=== PATIENT | female | born 1995 | race Caucasian/White ===

== ENCOUNTER → 2018-01-25 13:18 | Outpatient (CLI) | payer BC, SELFPAY ==
[2018-01-25 09:18] VITALS: BMI 19.5
[2018-01-25 14:57] LABS: HIV - WCH Non-Reactive (Nonreactive)
[2018-01-26 08:53] LABS: HEPATITIS B SURFACE AG Negative (Negative)
[2018-01-27 07:03] LABS: Rapid Plasmin Reagin (RPR) NONREACTIVE (NONREACTIVE)
--- OUTSIDE RECORDS SUMMARY | 2018-03-22 22:52 | XMS RPT_ITS ---
:1995 Author Organization OHIP Care Team Providers Name Role Phone Felicia Heath Attending Unavailable Fide Nolasco Attending Unavailable Felicia Heath Attending Unavailable Felicia Heath Attending Unavailable Felicia Heath Referring Unavailable Primay Care Physicia, No Primary Care Unavailable Reji Lorenz Attending Unavailable Reji Lorenz Primary Care Unavailable Reji Lorenz Attending Unavailable Reji Lorenz Primary Care Unavailable Reji Lorenz Admitting Unavailable Reji Lorenz Admitting Unavailable Reji Lorenz Attending Unavailable Reji Lorenz Primary Care Unavailable Reji Lorenz Attending Unavailable Reji Lorenz Primary Care Unavailable Reji Lorenz Admitting Unavailable Reji Lorenz Attending Unavailable No Doctor Assigned, Nodr Primary Care Unavailable Reji Lorenz Attending Unavailable No Doctor Assigned, Nodr Primary Care Unavailable VERNON CAST Attending Unavailable FELICIA HEATH Referring Unavailable NO PRIMARY CAREMD Primary Care Unavailable PROBLEMS PROBLEMS DATE TYPE CONDITION / CODE ATTENDING STATUS SOURCE 01/25/2018 Unknown Z34.02 - Erwin Heath [place] Encounter for Felicia [facility] normal first Repository , second trimester / Z34.02(ICD-10) 01/25/2018 Unknown Z34.00 - Kumar, Active [place] Encounter for [facility] normal first Repository , unspecified trimester / Z34.00(ICD-10) 01/25/2018 Unknown Z3A.19 - 19 weeks Kumar, Active [place] gestation of [facility] Z3A.19(ICD-10) Repository 12/31/2017 Unknown Z3A.15 - 15 weeks Kumar, Active [place] gestation of [facility] Z3A.15(ICD-10) Repository PROCEDURES PROCEDURES No Procedure Records FoundRESULTS RESULTS HIV - [facility] Collected: 01/25/2018 Status: F Source: [place] 1:26 PM [facility] REPOSITORY TYPE CODE TESTS RESULT OUT OF RANGE REFERENCE UNITS LAB L3890.6005 Nonreactive Normal HIV - [facility] Non-Reactive Performed By: #### L3890.6005 #### [facility] [address] [place], [place], [id number] HEPATITIS B SURFACE Collected: 01/25/2018 Status: F Source: WILLIAM AG 1:26 PM [facility] REPOSITORY TYPE CODE TESTS RESULT OUT OF RANGE REFERENCE UNITS LAB L3100.0400 Negative Normal HB Negative SURF AG Result Comment: Performed at: [facility] [address] [id number] Marketing Operations Intern: Yuniel Pierce PhD, Phone: [phone] Performed By: #### L3100.0390 #### [facility] (refer to report for specific site) refer to report for address and phone number RAPID PLASMIN REAGIN Collected: 01/25/2018 Status: F Source: WILLIAM (RPR) 1:26 PM [facility] REPOSITORY TYPE CODE TESTS RESULT OUT OF REFERENCE UNITS RANGE LAB L700.5000 NONREACTIVE NONREACTIVE Normal RPR Performed By: #### L700.5000 #### [facility] [address] [place], [place], [address] CALL OUT CLERK OFFICE VISIT Observed: 01/25/2018 Status: F Source: [place] REPORT 9:42 AM [facility] REPOSITORY [facility] [address] [place] [address] OFFICE VISIT Date of Service: 01/25/18 MR#: [id number] Acct: [id number] Name: DENNISE MCDONALD Rep #: [id number] : 1995 Provider: Felicia Heath MD Age/Sex: 22/F [place] [facility] [place]: Signed Intake Vital Signs01/25/18 Height 5 ft 4 in 01/25/18 Weight: 114 lb 2 oz 01/25/18 Body Mass Index (BMI) 19.5 01/25/18 Blood Pressure 98/56 L Intake Visit Reasons: 19 weeks Chief Complaint: est ob [employer] Administrator Required: No Is patient in pain?: No Allergies No Known Allergies Allergy (Verified 01/25/18 09:19) Medications vitamin#30 30 mg iron-10 mg iron-folic acid 1 mg- omg3 capsule cap PO cap 12/30/17 [History Confirmed 01/25/18] valacyclovir 500 mg tablet 2,000 mg PO Q12H #8 tab 01/04/18 [Rx Confirmed 01/25/18] Last Menstral Period: 09/14/17 Zika: Zika virus screening: Negative : No PFSH PFSH Medical History H/O cold sores (Acute) Raynaud disease (Acute) Social History Smoking Status: Never smoker alcohol intake: never substance use type: does not use caffeine: Yes what type of physical activity do you participate in: walking seatbelt use: always do you feel safe at home: Yes additional social history: Anneleise- Student and works at [employer] Patient works at [employer] [facility] 19 weeks: Details: DENNISE MCDONALD is a 22 year old who presents for routine OB visit. OB Visit YI Calculator Estimated Delivery Date 06/21/18 Based on LMP (certain) 09/14/17 Current WG 19w 0d Number 1 Expected Delivery Route/Plan Initial Weight: 109 lb Date Weight BP Urine PrFHR FuHt Pres MoCTX DilationFetal StVisit NoProviderComments E ot v te GA G Effac lucose ed Visit Notes Visit Date: 01/25/18 no vb lof cramping. need to obtain records from dr lorenz's office Felicia Heath MD on 01/25/18 Visit Date: 12/30/17 no vb cramping RHETT Dr Danii Heath MD on 12/30/17 Diagnostics Diagnostics Details: HIV: Urine Culture: Sequential Screen: NIPT Screen: Results BMSUA2 Office Urine Glucose Negative Last Edit by Carina Burciaga on 01/25/18 09:28 Assessment AND Plan Problems 1. Encounter for supervision of normal first in second trimester Z34.02 YI 06/21/18 Anneliese 2. 19 weeks gestation of Z3A.19 genetic, ntd, and carrier screening declined. anatomy scan ordered. Plan ACOG trimester education reviewed and updated. see problem list details for updated plan management information and see below for orders placed at this visit. GA appropriate handout given. Orders Orders: Coding Level of Care Code OB Routine Diagnoses Encounter for supervision of normal first in second trimester Z34.02 Trimester: second trimester 19 weeks gestation of Z3A.19 Weeks of gestation: 19 weeks 01/25/18 0942 <Electronically signed by Felicia Heath MD> Date [facility] Signature: Date (if applicable) CC: CALL OUT CLERK OFFICE VISIT Observed: 12/30/2017 Status: F Source: WILLIAM REPORT 5:11 PM [facility] REPOSITORY [facility] [address] [place] [address]. [address] [place] [address] OFFICE VISIT Date of Service: 12/30/17 MR#: [id number] Acct: [id number] Name: HARRYDENNISE Geo Rep #: [id number] : 1995 Provider: Felicia Heath MD Age/Sex: 22/F [place] [facility] [place] Status: Signed Intake Vital Signs12/30/17 Height 5 ft 4 in 12/30/17 Weight: 109 lb 2 oz 12/30/17 Body Mass Index (BMI) 18.7 12/30/17 Blood Pressure 110/68 Intake Visit Reasons: [address] LORENZ Chief Complaint: routine ob, transfer from Dr. Lorenz (Has Records) [employer] Administrator Required: No Is patient in pain?: No Allergies No Known Allergies Allergy (Unverified 12/30/17 16:46) Medications vitamin#30 30 mg iron-10 mg iron-folic acid 1 mg- omg3 capsule cap PO cap 12/30/17 [History Confirmed 12/30/17] Last Menstral Period: 09/14/17 Zika: Zika virus screening: Negative : No PFSH PFSH Medical History H/O cold sores (Acute) Raynaud disease (Acute) Social History Smoking Status: Never smoker alcohol intake: never substance use type: does not use caffeine: Yes what type of physical activity do you participate in: walking seatbelt use: always do you feel safe at home: Yes additional social history: Anneliese- Student and works at [employer] Patient works at [employer] [facility] [address] LORENZ: Details: DENNISE MCDONALD is a 22 year old who presents for routine OB visit. OB Visit YI Calculator Estimated Delivery Date 06/21/18 Based on LMP (certain) 09/14/17 Current WG 15w 2d Number 1 Expected Delivery Route/Plan Initial Weight: 109 lb Date Weight BP Urine PrFHR FuHt Pres MoCTX DilationFetal StVisit NoProviderComments E ot v te GA G Effac lucose ed Visit Notes Visit Date: 12/30/17 no vb cramping RHETT Dr Danii Heath MD on 12/30/17 Diagnostics Diagnostics Details: HIV: Urine Culture: Sequential Screen: NIPT Screen: Assessment AND Plan Problems 1. 15 weeks gestation of Z3A.15 genetic, ntd, and carrier screening declined. anatomy scan ordered. 2. Encounter for supervision of normal first in second trimester Z34.02 YI 06/21/18 Anneliese Fleming ACOG trimester education reviewed and updated. see problem list details for updated plan management information and see below for orders placed at this visit. GA appropriate handout given. Coding Level of Care Code OB Routine Diagnoses 15 weeks gestation of Z3A.15 Weeks of gestation: 15 weeks Encounter for supervision of normal first in second trimester Z34.02 Trimester: second trimester 12/30/17 1711 <Electronically signed by Felicia Heath MD> Date Felicia Heath MD Cosigner Signature: Date (if applicable) CC: CHLAMYDIA GC BY PCR Collected: 11/09/2017 Status: F Source: [facility] 11:45 AM [facility] REPOSITORY TYPE CODE TESTS RESULT OUT OF RANGE REFERENCE UNITS LAB 618444505( Not Detected LOINC) Normal Chlamydia by Not Detected PCR. Result Comment: Xpert CT/NG Assay performance has not been evaluated in patients less than 14 years of age. LAB 404179343(LOINC) Not Detected Normal Gonorrhoeae by Not Detected PCR Result Comment: Xpert CT/NG Assay performance has not been evaluated in patients less than 14 years of age. Performed By: #### [id number] #### [facility] SubSection , Observed: 11/09/2017 Status: F Source: [facility] URINE 11:45 AM [facility] REPOSITORY Final Report: Rare Normal skin lucio isolated Performed By: #### [id number] #### A[facility]LDO Microbiology Subsection [address] [place] [address] CBC W/ AUTO DIFF Collected: 11/09/2017 Status: F Source: [facility] 11:42 AM [facility] REPOSITORY TYPE CODE TESTS RESULT OUT OF RANGE REFERENCE UNITS LAB 40303922(L 3.6-11.0 E3/mcL OINC) Normal WBC 3.7 LAB 06152625(L 3.90-5.40 E6/mcL OINC) Normal RBC 4.20 LAB 00248330(L 12.0-16.0 G/DL OINC) Normal Hgb 13.8 LAB 67577952(L 36.0-48.0 % OINC) Normal Hct 40.4 LAB 17005341(L 11.5-14.5 % OINC) Normal RDW 12.3 LAB 42368091(L 27.0-31.0 pg OINC) High MCH 33.0 LAB 03581250(L 33.0-37.0 G/DL OINC) Normal MCHC 34.3 LAB 52282710(L 78.0-100.0 fL OINC) Normal MCV 96.2 LAB 15356470(L 7.4-11.0 fL OINC) Normal MPV 8.6 LAB 86810102(L 130-400 E3/mcL OINC) Normal Platelet 245 Performed By: #### [id number] #### ARNALDO [employer] [address] [place] [address] HIV-1/2 AG/AB Collected: 11/09/2017 Status: F Source: [place] 11:42 AM [facility] REPOSITORY TYPE CODE TESTS RESULT OUT OF REFERENCE UNITS RANGE LAB CD:5777687 Non-Reactive 575(LOINC) HIV-1 & Normal HIV-2 Antibodies Non-Reactive LAB CD:3665845 Non-Reactive 581(LOINC) HIV-1 Normal p-24 Antigen Non-Reactive LAB CD:6625313 Reactive 569(LOINC) HIV Normal Combo Internal Reactive Control Line LAB CD:9281223 Negative 967(LOINC) HIV-1/2 Normal Ag/Ab Interp Negative Performed By: #### [id number] #### ARNALDO Chemistry Manual Subsection [address] [place] [address] RUBELLA IGG LVL Collected: 11/09/2017 Status: F Source: [place] 11:42 AM [facility] REPOSITORY TYPE CODE TESTS RESULT OUT OF RANGE REFERENCE UNITS LAB 70850822(LO Internation INC) al_Unit/mL Normal Rubella IgG 19.2 Lvl (POS) Result Comment: <10IU/ml NON REACTIVE: NOT IMMUNE 10-15 IU/ml RUBELLA SPECIFIC AB PRESENT, EVALUATE FURTHER TO DETERMINE IMMUNE STATUS >15 IU/ml REACTIVE, IMMUNE Performed By: #### [id number] #### ARNALDO [employer] [address] [place] [address] ANTIBODY SCREEN Collected: 11/09/2017 Status: F Source: [place] CAP... 11:42 AM [facility] REPOSITORY TYPE CODE TESTS RESULT OUT OF RANGE REFERENCE UNITS LAB 84605519(L OINC) Normal Screen Negative Interp... Performed By: #### [id number] #### [facility]LDO Blood Bank Subsection [address] [place] [address] ABO/RH ECHO Collected: 11/09/2017 Status: F Source: [facility] 11:42 AM [facility] REPOSITORY TYPE CODE TESTS RESULT OUT OF RANGE REFERENCE UNITS LAB 50328715(LO INC) ABO/Rh E A POS Interp... Performed By: #### [id number] #### [facility] Blood Bank Subsection [address] [place] [address] HEP BS AG Collected: 11/09/2017 Status: F Source: [facility] 11:42 AM [facility] REPOSITORY TYPE CODE TESTS RESULT OUT OF RANGE REFERENCE UNITS LAB 54159910(LO Negative INC) Normal Hep Negative Bs Ag Result Comment: Performed At: [facility] [address] [id number] Kari Brice PhD Ph:[phone] Performed By: #### [id number] #### ARNALDO Send Outs Subsection [address] [place] [address] RPR Collected: 11/09/2017 Status: F Source: [facility] 11:42 AM [facility] REPOSITORY TYPE CODE TESTS RESULT OUT OF RANGE REFERENCE UNITS LAB 70547164(LO Non-Reactive INC) Normal RPR Ql Non-Reactive Performed By: #### [id number] #### ARNALDO Chemistry Manual Subsection [address] [place] [address] IGP W/HPV RFX Collected: 09/06/2017 Status: F Source: [place] [id number] 1:37 PM [facility] REPOSITORY Order Comment: Thin Prep. LMP 08-15-2017 TYPE CODE TESTS RESULT OUT OF RANGE REFERENCE UNITS LAB 57542382(LO INC) Normal See Ref Lab Diagnosis: Report Performed By: #### [id number] #### ARNALDO Send Outs Subsection [address] [place] [address] PATHOLOGY ([facility]) Observed: 09/06/2017 Status: F Source: [facility] 12:00 AM REPOSITORY FINAL GYNECOLOGIC CYTOLOGY REPORT [id number] SPECIMEN ADEQUACY Satisfactory for Evaluation. Endocervical cells/transformation zone component present. GENERAL CATEGORIZATION Negative for Intraepithelial Lesion or Malignancy CLINICAL HISTORY LMP: 08/15/2017 SPECIMEN (A) SCREENING CERVICAL/ENDOCERVICAL THIN PREP VIAL Performed at [facility], [address] [place] [address] Screened by: Signed Out by: RENNY BEAN Food And Drug Research Scientist Reported: 09/19/2017 Performed By: #### APPLICATIONS SUPPORT LEAD #### [facility] [address] [place] [address] ALLERGIES ALLERGIES DATE TYPE / CODE NAME / CODE REACTION SEVERITY SOURCE 01/25/2018 Drug No Known Unknown [facility] Allergy/4160 Allergies/F001 Hospital 98091(SNOMED 742326(RXNORM) Repository CT) Food/5326182 Pickle juice Severe Gnosticist 00([facility]) System Repository ENCOUNTERS ENCOUNTERS ADMIT/DISCHARGE ACCOUNT NUMBER ADMITTING ENCOUNTER LOCATION SOURCE CLASS 01/30/2018 [id number] Ambulatory Building:[facility] Repository 01/25/2018 [id number] Ambulatory [facility] ding:PAVLAB Repository 01/25/2018/01/26/20 [id number] Ambulatory BMSBuilding: [place] 18 BMS.[facility] Repository 12/30/2017/12/31/19 [id number] Ambulatory BMSBuilding: [place] 18 BMS.[facility] Repository 12/05/2017/12/06/[id number] System :[facility] Repository om: Room 6 11/09/2017 [id number] Ambulatory BMSBuilding: [place] BMS.[facility] Repository 11/09/2017/11/10/[id number] ding:SH.[facility] Repository 11/09/2017 [id number] Ambulatory [address] [place] [address] Repository 11/08/2017/11/09/[id number] System :[facility] Repository om: Procedure 09/06/2017/09/07/[id number] ding:SH.[facility] Repository 09/06/2017/09/07/19 [id number] Danii, Ambulatory [address] System :[facility] Repository om: Room 5 09/06/2017 [id number] Ambulatory [address] [place] [address] Repository 08/16/2017/08/17/[id number] System :[facility] PAYERS PAYERS ENCOUNTER GUARANTOR PAYER SUBSCRIBER SOURCE 01/30/2018 INDERJITNE L Primary INDERJITNE L [facility] HERRERADOB: Insurance:ANTHEMPolic HERRERADOB: [facility] y Number: [id number] Repository [address] [id number] [address] [place], [place] Date: [place], [place] [address]Nnb: [phone] () 01/25/2018 INDERJITNE L Primary SHAIANNE L [place] [id number] 1/2 E Insurance:ANTHEMPolic HERRERADOB: [address] y Number: [id number] [id number] Repository [address]Lcm: ([phone]) Date:7548-38-18GW [phone] () [id number], [place] [address]SX: 01/25/2018 Secondary NOT GIVENUNK [place] Insurance:SELF PAY [place] Number: Effective Repository Date:2018-01-25 01/25/2018 SHAIANNE L Primary SHAIANNE L [place] [id number] 1/2 E Insurance:ANTHEMPolic HERRERADOB: Community [address] y Number: [id number] [id number] Repository [address]Hoq: ([phone]) Date:7222-03-79BM [phone] () [id number], [place] [address]MF: 01/25/2018 Secondary NOT GIVENUNK [place] Insurance:SELF PAY [facility] Number: Effective Repository Date:2018-01-25 12/30/2017 SHAIANNE L Primary SHACOLTENNE L [place] [id number] 1/2 E Insurance:ANTHEMPolic HERRERADOB: [address] y Number: [id number] [place], [place] [id number] Repository [address]Fiy: ([phone]) Date:8822-12-18YT [phone] () [id number] [place] [address]OY: 12/30/2017 Secondary NOT GIVENUNK [place] Insurance:SELF PAY [facility]: Effective Repository Date:2017-12-30 11/09/2017 Primary SHAIANNE L [place] Insurance:ANTHEMPolic HERRERADOB: Community y Number: [id number] [id number] Repository Date:6999-55-35YL [address]AFSCWWN, [place] [address]GO: 11/09/2017 Secondary NOT GIVENUNK [place] Insurance:SELF PAY [facility] Number: Effective Repository Date:2017-11-09 11/09/2017 [facility]AnthemPolic HERRERADOB: [facility] y Number: [id number] Repository /[address] [id number] [address] [place], [place] Date:Plan Name:[place], [place] [id number]: [id number]: () () 09/06/2017 [facility]: [facility]:1500 HERRERADOB: [facility] E MEDICAID [id number] System [facility] Number: [address] Repository [place], [place] [address]Pps: Date:2017-08-16 [phone]: [id number] () Name:CD:[id number] O (HP)Tel: (454) LXL [address], [place] [phone] (WP) [address]OP: 09/06/2017 [facility]: [facility] y Number: [id number] Repository [address] [id number] [address] [place], [place] Date:Plan Name:[place], [place] [id number]: [id number]: (HP) (HP) 08/16/2017 [facility] [place], [place] [address]OB: [facility] E MEDICAID [id number] System [facility] Number: [place] [place] [address]Rrd: Date:2017-07-05 [id number]: [id number] (HP) Name:CD:[id number] O (HP)Tel: (673) [address], [place] [phone] (WP) [phone]:
== END ==
PROVIDERS: Referring Provider Obstetrics & Gynecology; Visit Provider Obstetrics & Gynecology
DX: Z34.00 Encounter for supervision of normal first pregnancy, unspecified trimester (principal)
CPT/HCPCS: 36415; 86592; 86703; 87340

== ENCOUNTER → 2018-03-27 14:20 | Outpatient (CLI) | payer BC, SELFPAY ==
[2018-02-24 11:57] VITALS: BMI 19.5
[2018-03-27 15:50] LABS: Absolute Lymphocyte Count 1.01 X10^3/ul (0.83-4.51); Basophil# 0.01 X10^3/uL; Basophil% 0.2 % (0-1); Eosinophil# 0.01 X10^3/uL; Eosinophils% 0.2 % (0-5); Hematocrit 37.7 % (37-47); Hemoglobin 13.2 g/dl (12.0-15.0); Lymphocyte # 1.01 X10^3/ul (4.0); Lymphocyte % 19.1 % (19-41); Mean Corpuscular Hgb 33.2 pg (27.0-32.0); Mean Corpuscular Volume 94.7 fL (81-99); Mean Platelet Vol. 9.8 fl (6.2-12.0); Monocyte# 0.21 X10^3/uL; Neutrophil # 4.03 X10^3/uL (2.7-7.7); Neutrophil % 76.3 % (47-70); Platelet Count 245 K/mm3 (150-450); RBC Distribution Width CV 12.2 % (11.6-14.6); RBC Distribution Width SD 41.2 fl (35.1-43.9); Red Blood Count 3.98 M/mm3 (4.2-5.4); White Blood Count 5.3 K/mm3 (4.4-11.0)
[2018-03-27 15:58] LABS: Glucose Challenge Gest 1H 50g 159 mg/dL (70-140)
[2018-03-27 16:12] LABS: POSITIVE COUNT NO; POSITIVE DIFFERENTIAL NO; POSITIVE MORPHOLOGY NO
== END ==
PROVIDERS: Visit Provider Obstetrics & Gynecology
DX: Z34.00 Encounter for supervision of normal first pregnancy, unspecified trimester (principal)
CPT/HCPCS: 36415; 82950; 85025

== ENCOUNTER → 2018-04-04 10:04 | Outpatient (CLI) | payer SELFPAY ==
[2018-02-24 11:57] VITALS: BMI 19.5
[2018-03-30 14:30] VITALS: BMI 19.5
[2018-04-04 10:54] LABS: Glucose GTT-Gestation. Fasting 74 mg/dL (<105)
[2018-04-04 11:53] LABS: Glucose GTT-Gestational 1 Hr 175 mg/dL (<190)
[2018-04-04 12:50] LABS: Glucose GTT-Gestational 2 Hr 142 mg/dL (<165)
[2018-04-04 13:45] LABS: Glucose GTT-Gestational 3 Hr 106 L (<145)
== END ==
PROVIDERS: Referring Provider Obstetrics & Gynecology; Visit Provider Obstetrics & Gynecology
DX: O99.810 Abnormal glucose complicating pregnancy (principal)
CPT/HCPCS: 36415; 82951; 82952

== ENCOUNTER → 2018-04-14 13:24 | Outpatient (CLI) | payer SELFPAY ==
[2018-04-14 09:20] VITALS: BMI 19.5
== END ==
PROVIDERS: Referring Provider Obstetrics & Gynecology; Visit Provider Obstetrics & Gynecology
DX: Z34.00 Encounter for supervision of normal first pregnancy, unspecified trimester (principal)
CPT/HCPCS: 87086

== ENCOUNTER → 2018-05-10 10:31 | Outpatient (CLI) | payer MEDICAID, SELFPAY ==
[2018-05-10 10:08] VITALS: BMI 19.5
[2018-05-10 11:16] LABS: Absolute Lymphocyte Count 1.04 X10^3/ul (0.83-4.51); Eosinophil# 0.01 X10^3/uL; Eosinophils% 0.2 % (0-5); Hematocrit 40.8 % (37-47); Hemoglobin 13.6 g/dl (12.0-15.0); Lymphocyte # 1.04 X10^3/ul (4.0); Lymphocyte % 23.8 % (19-41); Mean Corp Hgb Conc 33.3 g/gl (32-36); Mean Corpuscular Hgb 31.4 pg (27.0-32.0); Mean Corpuscular Volume 94.2 fL (81-99); Monocyte# 0.29 X10^3/uL; Monocyte% 6.6 % (0-10); Neutrophil # 3.01 X10^3/uL (2.7-7.7); Neutrophil % 68.9 % (47-70); Platelet Count 225 K/mm3 (150-450); RBC Distribution Width CV 12.2 % (11.6-14.6); RBC Distribution Width SD 41.5 fl (35.1-43.9); Red Blood Count 4.33 M/mm3 (4.2-5.4); White Blood Count 4.4 K/mm3 (4.4-11.0)
[2018-05-10 11:17] LABS: POSITIVE COUNT NO; POSITIVE DIFFERENTIAL NO; POSITIVE MORPHOLOGY NO
[2018-05-10 11:28] LABS: ALB/GLOB Ratio 0.7 RATIO (0.9-2.4); AST(SGOT) 46 U/L (15-37); Alanine Aminotransfer ALT/SGPT 63 U/L (13-56); Alkaline Phosphatase 221 U/L (45-117); Anion Gap 8 (5-15); BUN 8 mg/dL (7-18); BUN/Creat Ratio 13.7 RATIO (10-20); Chloride 104 mmol/L (98-107); Creatinine, Serum 0.59 mg/dL (0.55-1.02); EST Glomerular Filtration Rate 136 mL/min (>60); Est Glom Filt Rate - Afr Amer 164 mL/min (>60); Globulin 4.3 g/dL (2.2-4.2); Glucose 71 mg/dL (74-106); Potassium 3.9 mmol/L (3.5-5.1); Protein, Total 7.3 g/dL (6.4-8.2); Sodium Level 135 mmol/L (136-145)
== END ==
PROVIDERS: Referring Provider Obstetrics & Gynecology; Visit Provider Obstetrics & Gynecology
DX: Z87.2 Personal history of diseases of the skin and subcutaneous tissue (principal)
CPT/HCPCS: 36415; 80053; 85025

== ENCOUNTER → 2018-05-16 14:19 | Outpatient (CLI) | payer MEDICAID, SELFPAY ==
[2018-05-16 14:12] VITALS: BMI 19.5
== END ==
PROVIDERS: Visit Provider Obstetrics & Gynecology
DX: Z87.2 Personal history of diseases of the skin and subcutaneous tissue (principal)
CPT/HCPCS: 36415

== ENCOUNTER → 2018-05-22 11:43 | Outpatient (CLI) | payer MEDICAID, SELFPAY ==
[2018-05-16 14:12] VITALS: BMI 19.5
[2018-05-22 12:32] LABS: Absolute Lymphocyte Count 0.86 X10^3/ul (0.83-4.51); Absolute Neutrophil Count 3.4 X10^3/uL (2.0-7.7); Basophil# 0.01 X10^3/uL; Basophil% 0.2 % (0-1); Eosinophil# 0.01 X10^3/uL; Eosinophils% 0.2 % (0-5); Hematocrit 42.4 % (37-47); Hemoglobin 14.3 g/dl (12.0-15.0); Lymphocyte # 0.86 X10^3/ul (4.0); Lymphocyte % 18.5 % (19-41); Mean Corp Hgb Conc 33.7 g/gl (32-36); Mean Corpuscular Hgb 31.6 pg (27.0-32.0); Mean Corpuscular Volume 93.8 fL (81-99); Mean Platelet Vol. 9.9 fl (6.2-12.0); Monocyte% 6.5 % (0-10); Neutrophil # 3.44 X10^3/uL (2.7-7.7); Neutrophil % 74.2 % (47-70); Platelet Count 250 K/mm3 (150-450); RBC Distribution Width CV 12.3 % (11.6-14.6); RBC Distribution Width SD 41.3 fl (35.1-43.9); Red Blood Count 4.52 M/mm3 (4.2-5.4); White Blood Count 4.6 K/mm3 (4.4-11.0)
[2018-05-22 12:37] LABS: POSITIVE COUNT NO; POSITIVE DIFFERENTIAL NO; POSITIVE MORPHOLOGY NO
[2018-05-22 12:55] LABS: ALB/GLOB Ratio 0.6 RATIO (0.9-2.4); AST(SGOT) 74 U/L (15-37); Alanine Aminotransfer ALT/SGPT 82 U/L (13-56); Albumin, Serum 3.1 g/dL (3.2-5.0); Alkaline Phosphatase 270 U/L (45-117); Anion Gap 8 (5-15); BUN 7 mg/dL (7-18); BUN/Creat Ratio 11.3 RATIO (10-20); Chloride 106 mmol/L (98-107); Creatinine, Serum 0.62 mg/dL (0.55-1.02); EST Glomerular Filtration Rate 127 mL/min (>60); Est Glom Filt Rate - Afr Amer 154 mL/min (>60); Globulin 4.8 g/dL (2.2-4.2); Glucose 66 mg/dL (74-106); Potassium 3.8 mmol/L (3.5-5.1); Protein, Total 7.9 g/dL (6.4-8.2); Sodium Level 138 mmol/L (136-145)
[2018-05-23 05:06] LABS: HEPATITIS B SURFACE AG Negative (Negative); Hepatitis A IgM Antibody Negative (Negative); Hepatitis B Core AB IgM Negative (Negative)
[2018-05-23 13:44] LABS: Hep C Antibodies <0.1 s/co ratio (0.0-0.9)
== END ==
PROVIDERS: Referring Provider Obstetrics & Gynecology; Visit Provider Obstetrics & Gynecology
DX: R94.5 Abnormal results of liver function studies (principal)
CPT/HCPCS: 36415; 80053; 80074; 85025

== ENCOUNTER → 2018-05-26 13:58 | Outpatient (CLI) | payer MEDICAID, SELFPAY ==
[2018-05-26 11:01] VITALS: BMI 19.5
== END ==
PROVIDERS: Referring Provider Obstetrics & Gynecology; Visit Provider Obstetrics & Gynecology
DX: Z34.00 Encounter for supervision of normal first pregnancy, unspecified trimester (principal)
CPT/HCPCS: 87081

== ENCOUNTER 2018-05-29 12:35 | Outpatient (CLI) | payer MEDICAID, SELFPAY ==
[2018-05-26 11:01] VITALS: BMI 19.5
[2018-05-29 12:45] VITALS: BMI 21.1
[2018-05-29] MEDS: Betamethasone/Betamethasone 30 MG/5 ML Vial 12 MG IM (13:24)
--- NOTE | 2018-05-31 07:01 | OB.TRI.PN ---
Progress Notes Date of Service: 05/29/18 Progress Note: cholestasis of - celestone injection only
== END 2018-05-29 13:25 | disposition home or self-care (01) ==
LOC: WPOUT 12:43 → WP 12:44
PROVIDERS: Referring Provider Obstetrics & Gynecology; Visit Provider Obstetrics & Gynecology
DX: O26.619 Liver and biliary tract disorders in pregnancy, unspecified trimester (principal); K83.1 Obstruction of bile duct; Z3A.00 Weeks of gestation of pregnancy not specified
CPT/HCPCS: 96372; 99218; G0378; J0702

== ENCOUNTER 2018-05-30 13:05 | Outpatient (CLI) | payer MEDICAID, SELFPAY ==
[2018-05-29 12:45] VITALS: BMI 21.1
[2018-05-30 13:21] VITALS: BMI 21.1
[2018-05-30] MEDS: Betamethasone/Betamethasone 30 MG/5 ML Vial 12 MG IM (14:02)
--- NOTE | 2018-05-31 07:02 | OB.TRI.PN ---
Progress Notes Date of Service: 05/30/18 Progress Note: cholestasis of - celestone injection only
== END 2018-05-30 14:00 | disposition home or self-care (01) ==
LOC: WPOUT 13:16 → WP 13:17
PROVIDERS: Referring Provider Obstetrics & Gynecology; Visit Provider Obstetrics & Gynecology
DX: O26.619 Liver and biliary tract disorders in pregnancy, unspecified trimester (principal); K83.1 Obstruction of bile duct; Z3A.00 Weeks of gestation of pregnancy not specified
CPT/HCPCS: 96372; 99218; G0378; J0702

== ENCOUNTER 2018-05-31 07:30 | Inpatient (IN) | payer MEDICAID, SELFPAY ==
[2018-05-16 14:12] VITALS: BMI 19.5
[2018-05-30 13:21] VITALS: BMI 21.1
[2018-05-31 07:52] VITALS: BMI 21.2
[2018-05-31] MEDS: Lactated Ringers 1,000 ML 50 ML IV (08:15)
[2018-05-31] MEDS: Oxytocin 30 units/NS 500 ml 30 UNITS/500 ML IV.SOLN IV (08:40)
[2018-05-31 09:00] LABS: Absolute Lymphocyte Count 1.15 X10^3/ul (0.83-4.51); Absolute Neutrophil Count 4.9 X10^3/uL (2.0-7.7); Hematocrit 35.5 % (37-47); Hemoglobin 12.1 g/dl (12.0-15.0); Lymphocyte # 1.15 X10^3/ul (4.0); Lymphocyte % 18.1 % (19-41); Mean Corp Hgb Conc 34.1 g/gl (32-36); Mean Corpuscular Hgb 31.3 pg (27.0-32.0); Mean Corpuscular Volume 91.7 fL (81-99); Mean Platelet Vol. 9.8 fl (6.2-12.0); Monocyte# 0.33 X10^3/uL; Monocyte% 5.2 % (0-10); Neutrophil # 4.87 X10^3/uL (2.7-7.7); Neutrophil % 76.5 % (47-70); POSITIVE COUNT NO; POSITIVE DIFFERENTIAL NO; POSITIVE MORPHOLOGY NO; Platelet Count 250 K/mm3 (150-450); RBC Distribution Width CV 12.3 % (11.6-14.6); Red Blood Count 3.87 M/mm3 (4.2-5.4); White Blood Count 6.4 K/mm3 (4.4-11.0)
[2018-05-31] MEDS: 0.9% Normal Saline 100 ML IV.SOLN. INTRA-UTER (09:07)
[2018-05-31 09:16] LABS: ALB/GLOB Ratio 0.7 RATIO (0.9-2.4); AST(SGOT) 99 U/L (15-37); Alanine Aminotransfer ALT/SGPT 105 U/L (13-56); Albumin, Serum 2.9 g/dL (3.2-5.0); Alkaline Phosphatase 227 U/L (45-117); Anion Gap 9 (5-15); BUN 6 mg/dL (7-18); BUN/Creat Ratio 9.1 RATIO (10-20); Calcium,Total 8.7 mg/dL (8.5-10.1); Chloride 106 mmol/L (98-107); Creatinine, Serum 0.66 mg/dL (0.55-1.02); EST Glomerular Filtration Rate 118 mL/min (>60); Est Glom Filt Rate - Afr Amer 143 mL/min (>60); Estimated Creatinine Clearance 115.45 ml/min; Glucose 117 mg/dL (74-106); Potassium 3.1 mmol/L (3.5-5.1); Protein, Total 6.9 g/dL (6.4-8.2); Sodium Level 137 mmol/L (136-145)
--- NOTE | 2018-05-31 10:34 | HP.PCM_ITS ---
- Problem List (1) Supervision of high risk in third trimester Status: Acute (2) Cholestasis Status: Acute Comment: twice weekly BPP, deliver at 37 weeks (3) Placental abnormality in third trimester Status: Acute Comment: placental lakes/cystic structure at cord, check growth scan q 4 weeks BPP twice weekly, nst weekly. deliver at 37 weeks (4) Abnormal glucose affecting Status: Acute Comment: 1 hour elevated- normal 3GTT (5) Supervision of normal first Status: Acute Qualifiers: Comment: YI 06/21/18 boy Farooq Ysoi (in alf) (6) Status: Acute Qualifiers: Comment: genetic, ntd, and carrier screening declined. MFM Anatomy US normal- showed cystic structure near placental cord insertion- US 03/30: anterior placenta, grade 1 multiple venous lakes, largest near placental cord insertion 2.3x1.4x1.1 FU US in 4 weeks- adequate growth repeat in 4 weeks. Deliver at 37 weeks. History Date of Admission: 05/31/18 Final YI: 06/21/18 Gestational age: 37 Weeks and 0 Days History of this : This is a 22 year-old, at 37 weeks gestational age present sfor IOL cholestasis. she hsa had elevate dlive renzymes but resasuring feta ltesting. she received steroids 2 days prior to delivery. she dneie sany vb lof admits good fm dneies any ctx. Medical History: Medical History (Last Reviewed 05/26/18 @ 11:01 by Carina Burciaga) H/O cold sores Z86.19 Raynaud disease I73.00 Allergies No Known Allergies Allergy (Verified 05/31/18 07:44) Home Medications: Home Medications vitamin#30 30 mg iron-10 mg iron-folic acid 1 mg-omg3 capsule 1 cap PO cap 12/30/17 Ursodiol 300 mg PO TID 05/29/18 Valacyclovir HCl [Valacyclovir] 2,000 mg PO Q12H PRN 05/30/18 Smoking Status: Never smoker Alcohol: None Number of Fetus(es): 1 Heart Tracin moderate variability reactive no decelerations category I tracing [place]: no regular History Past Pregnancies: Past Pregnancies Delivery Date Name GA/Weeks Outcome Route Weight Infant Gender Labor Length Anesthesia Delivery Location Provider FOB Labs: Mom's Labs & Results 05/31/18 05/31/18 05/31/18 08:28 08:28 08:28 WBC 6.4 RBC 3.87 L Hgb 12.1 Hct 35.5 L MCV 91.7 MCH 31.3 MCHC 34.1 RDW 12.3 RDW Differential 41.0 Plt Count 250 MPV 9.8 Immature Gran % (Auto) 0.200 Neut % (Auto) 76.5 H Lymph % (Auto) 18.1 L [place] % (Auto) 5.2 Eos % (Auto) 0.0 Baso % (Auto) 0.0 Absolute Neuts (auto) 4.9 Absolute Lymphs (auto) 1.15 Total Counted Not Reportable Sodium 137 Potassium 3.1 L Chloride 106 Carbon Dioxide 22.0 Anion Gap 9 BUN 6 L Creatinine 0.66 Estim Creat Clear Calc 115.45 Est GFR (MDRD) Af Amer 143 Est GFR (MDRD) Non-Af 118 BUN/Creatinine Ratio 9.1 L Glucose 117 H Calcium 8.7 Total Bilirubin 0.40 AST 99 H ALT 105 H Alkaline Phosphatase 227 H Total Protein 6.9 Albumin 2.9 L Globulin 4.0 Albumin/Globulin Ratio 0.7 L Blood Type A POSITIVE Antibody Screen NEGATIVE Course Did the patient receive Yes care? Labs Blood Type: A RH: POSITIVE RPR/VDRL/Syphilis Nonreactive Rubella status Immune HbSAg Negative Date Done: 01/25/18 Chlamydia Negative Gonorrhea Negative HIV/AIDS Non-Reactive Group B Strep: Negative Current Obstetrical History Gestational Diabetes No Incompetent Cervix No Infertility No IUGR No Macrosomia No Hypertension/Pre-eclampsia No Placenta Previa/Abruption No PTL/PROM No Uterine anomaly No Oligohydramnios No Polyhydramnios No Multiple gestation No Past Medical History Asthma No Diabetes No Hypertension No Heart disease No Mitral valve prolapse No Neurologic/Seizure disorder/ No Migraines Kidney disease No Liver disease No Varicosities No Clotting disorders/Hx of DVT No Thyroid Dysfunction No Other medical diseases No Psychiatric disorders No Major trauma No Abnormal PAP smear No Sleep apnea No Mammogram in the last 2 years No Social History Marital Status: Alleged father Yosi Moreland Hx Smoking No Smoking Status Never smoker Expected Infant Delivery Method: Spontaneous Vaginal Review of Systems Constitutional: Denies: Fever, Malaise Eyes: Denies: Blurred vision, Vision Change HEENT: Denies: Head Aches, Visual Changes Cardiovascular: Denies: Chest Pain, Palpitations Respiratory: Denies: Cough, Shortness of Breath, Wheezing Gastrointestinal: Denies: Abdominal Pain, Diarrhea, Nausea, Vomiting Genitourinary: Denies: Dysuria, Hematuria Musculoskeletal: Denies: Joint Pain, Muscle pain Skin: Reports: Pruritis. Denies: Lesions, Rash Neurological: Denies: Blurred vision, Focal weakness, Headaches Psychiatric: Denies: Anxiety, Depression Endocrine: Denies: Heat/ Cold Intolerance Hematologic/ Lymphatic: Denies: Easy Bruising, Easy Bleeding Physical Exam General: Alert, Cooperative, No apparent distress HEENT: Atraumatic, Normocephalic. Negative for: Thyromegaly, Lymphadenopathy Cardiovascular: Regular rate Lungs: Normal air movement Abdomen: Soft, Non Tender, Gravid Neurological: Deep Tendon Reflexes 2+/4 and Symmetrical, Neuro grossly intact. Negative for: Clonus SENIOR UNIX ADMINISTRATOR: Normal external genitalia. Negative for: Vulvar lesions Estimated gestational size: Appropriate for gestational size Presentation: Cephalic Cervix Dilation (cm): 1.5 Station: 0 Effacement (%): 50 Assessment/Plan All Active Problems (Last Reviewed 05/26/18 @ 11:01 by Carina Burciaga) Supervision of high risk in third trimester (Acute) Cholestasis (Acute) Placental abnormality in third trimester (Acute) Abnormal glucose affecting (Acute) Supervision of normal first (Acute) (Acute) Elevated liver enzymes (Resolved) This is a 22 year-old, at 37 weeks gestational age cholestasis with elevated liver enzymes Patient presents IOL, plan management for , pitocin/AROM after Vila bulb comes out. Pain management: Plans epidural. GBS negative. Management of any complications: Repeat liver enzymes I have reviewed the [facility] and made any clinically relevant updates.
[2018-05-31] MEDS: Oxytocin 30 units/NS 500 ml 30 UNITS/500 ML IV.SOLN 334 UNITS IV (19:54)
[2018-05-31] MEDS: Oxytocin 30 units/NS 500 ml 30 UNITS/500 ML IV.SOLN 167 UNITS IV (20:24)
[2018-05-31] MEDS: Naproxen 250 MG Tablet 500 MG PO (22:00)
[2018-05-31] MEDS: Lactated Ringers 1,000 ML 999 ML IV (23:25)
[2018-05-31 23:35] VITALS: BP 104/69; PULSE 91; RESP 16; TEMP 37.4
[2018-06-01 04:15] VITALS: BP 112/74; PULSE 75; RESP 16; TEMP 36.9
--- NOTE | 2018-06-01 07:34 | PCM.PN.OB ---
Subjective: No CP SOB N V ambulating well tolerating po lochia moderate, Had vasovagal episode without LOC last evening. Responded well to bolus IV fluids. Has been up to ambulate several times since and no issues. Some difficulty with . - Physical Exam General: Alert, Oriented x3 Abdomen: Soft, Non Tender, Non-Distended, - - FF below U Vital Signs Temp Pulse Resp BP 99.3 F H 91 16 104/69 05/31/18 23:35 05/31/18 23:35 05/31/18 23:35 05/31/18 23:35 Oxygen Delivery Method Room Air Weight: 124 lb Body Mass Index (BMI) 21.2 Intake and Output for Last 24 Hours 05/30/18 05/31/18 06/01/18 23:59 23:59 23:59 Intake Total 1910 / 1910 Output Total 1600 / 1600 700 / 700 Balance 310 / 310 -700 / -700 Laboratory Tests Past 24 Hrs 05/31/18 05/31/18 05/31/18 08:28 08:28 08:28 WBC 6.4 RBC 3.87 L Hgb 12.1 Hct 35.5 L MCV 91.7 MCH 31.3 MCHC 34.1 RDW 12.3 RDW Differential 41.0 Plt Count 250 MPV 9.8 Immature Gran % (Auto) 0.200 Neut % (Auto) 76.5 H Lymph % (Auto) 18.1 L [place] % (Auto) 5.2 Eos % (Auto) 0.0 Baso % (Auto) 0.0 Absolute Neuts (auto) 4.9 Absolute Lymphs (auto) 1.15 Total Counted Not Reportable Sodium 137 Potassium 3.1 L Chloride 106 Carbon Dioxide 22.0 Anion Gap 9 BUN 6 L Creatinine 0.66 Estim Creat Clear Calc 115.45 Est GFR (MDRD) Af Amer 143 Est GFR (MDRD) Non-Af 118 BUN/Creatinine Ratio 9.1 L Glucose 117 H Calcium 8.7 Total Bilirubin 0.40 AST 99 H ALT 105 H Alkaline Phosphatase 227 H Total Protein 6.9 Albumin 2.9 L Globulin 4.0 Albumin/Globulin Ratio 0.7 L Blood Type A POSITIVE Antibody Screen NEGATIVE Medical Necessity - Tobacco Use Smoking Status: Never smoker Assessment/Plan All Active Problems (Last Reviewed 05/26/18 @ 11:01 by Carina Burciaga) Supervision of high risk in third trimester (Acute) Cholestasis (Acute) Placental abnormality in third trimester (Acute) Abnormal glucose affecting (Acute) Supervision of normal first (Acute) (Acute) Elevated liver enzymes (Resolved) s/p PPD # 1 1. routine post delivery care 2. breast feeding- support given/ consult today 3. rh positive 4. rubella immune
[2018-06-01 08:47] VITALS: BP 102/68; PULSE 75; RESP 18; TEMP 36.6; O2SAT 98
[2018-06-01] MEDS: Senna/Docusate Sodium 1 Tablet PO (08:51)
[2018-06-01] MEDS: Naproxen 250 MG Tablet 500 MG PO (12:34)
[2018-06-01 12:36] VITALS: BP 116/80; PULSE 89; RESP 18; TEMP 36.8; O2SAT 98
[2018-06-01 16:40] VITALS: BP 105/58; PULSE 80; RESP 18; TEMP 36.6; O2SAT 98
[2018-06-01 21:15] VITALS: BP 117/75; PULSE 97; RESP 18; TEMP 36.9
[2018-06-02 02:15] VITALS: BP 98/74; PULSE 81; RESP 18; TEMP 36.7
--- NOTE | 2018-06-02 07:00 | NURSING ---
Noted plum size clot on pad. Pt asymptomatic/denies dizziness. Advised Pt to alert staff if becomes asymptomatic/or has additional clots. Will continue to monitor.
--- NOTE | 2018-06-02 07:42 | PCM.OB.VAG ---
- Problem List (1) Supervision of high risk in third trimester Status: Acute (2) Cholestasis Status: Acute Comment: twice weekly BPP, deliver at 37 weeks (3) Placental abnormality in third trimester Status: Acute Comment: placental lakes/cystic structure at cord, check growth scan q 4 weeks BPP twice weekly, nst weekly. deliver at 37 weeks (4) Abnormal glucose affecting Status: Acute Comment: 1 hour elevated- normal 3GTT (5) Supervision of normal first Status: Acute Qualifiers: Comment: YI 06/21/18 boy Farooq Yosi (in long-term) (6) Status: Acute Qualifiers: Comment: genetic, ntd, and carrier screening declined. MFM Anatomy US normal-showed cystic structure near placental cord insertion- US 03/30: anterior placenta, grade 1 multiple venous lakes, largest near placental cord insertion 2.3x1.4x1.1 FU US in 4 weeks- adequate growth repeat in 4 weeks. Deliver at 37 weeks. Vaginal Delivery Maternal Presentation: Medically Indicated Induction iol cholestasis 37 weeks Method of Induction: Pitocin, Vila Bulb Amniotic Membrane Rupture Type: Artificial Amniotic Fluid Description: Clear Final YI: 06/21/18 Gestational age: 37 Weeks and Days Date of Procedure: 05/31/18 Pre-Operative Diagnosis: cholestasis Post-Operative Diagnosis: same Surgery/ Procedure Performed: Spontaneous Vaginal Delivery Type of Anesthesia: None Description of Procedure: Patient began pushing and delivered the head in the RACIEL presentation. The head was delivered atraumatically . The anterior and posterior shoulders delivered without complication followed by the rest of the infant and the infant was placed on the maternal abdomen. Delayed cord clamping was employed for approximately 60 seconds. Cord was clamped and cut and gentle traction was applied to the cord and the placenta delivered spontaneously immediately following it was noted to be intact with three-vessel cord. The perineum and vagina were inspected and noted to have a small perineal second-degree laceration that was repaired in the usual fashion with 3-0 Vicryl Rapide after injecting with 1% lidocaine. . Patient and tolerated delivery well. Presentation: RACIEL Placenta Disposition: [facility] Cord Vessel Description: 3 Vessels Cord Entanglement: None Infant A gender: Male Episiotomy Description: None Laceration: Perineal Extension/lac, 2nd degree Medications given after delivery: IV Pitocin Complications: None
--- NOTE | 2018-06-02 07:44 | PCM.PN.OB ---
Subjective: doing well no complaints pain controlled no CP SOB N V ambulating well tolerating po lochia moderate, going well - Physical Exam General: Alert, Oriented x3 Vital Signs Temp Pulse Resp BP Pulse Ox 98.1 F 81 18 98/74 98 06/02/18 02:15 06/02/18 02:15 06/02/18 02:15 06/02/18 02:15 06/01/18 16:40 Oxygen Delivery Method Room Air Weight: 124 lb Body Mass Index (BMI) 21.2 Intake and Output for Last 24 Hours 05/31/18 06/01/18 06/02/18 23:59 23:59 23:59 Intake Total 1910 / 1910 Output Total 1600 / 1600 700 / 700 Balance 310 / 310 -700 / -700 Medical Necessity - Tobacco Use Smoking Status: Never smoker Assessment/Plan All Active Problems (Last Reviewed 05/26/18 @ 11:01 by Carina Burciaga) Supervision of high risk in third trimester (Acute) Cholestasis (Acute) Placental abnormality in third trimester (Acute) Abnormal glucose affecting (Acute) Supervision of normal first (Acute) (Acute) Elevated liver enzymes (Resolved) s/p PPD # 2 1. routine post delivery care 2. breast feeding- support given 3. rh positive 4. rubella immune
--- NOTE | 2018-06-02 07:44 | PCM.DCVAG ---
Discharge Diet: No Restrictions Discharge Activity: Return to Normal Activity, May not drive while taking narcotic pain medications., May Shower May resume sexual activity in: 4-6 weeks Call your doctor if your incision/area has: Continuous Slow Oozing, Sudden Increased Bleeding, Increased Pain/ Swelling, Increased Redness, Foul Smelling Discharge Additional Instructions: If you experience any of the following, contact your healthcare provider. Bleeding that soaks a pad every hour for 2 hours Fever 100.4 or higher Unrelieved incision or abdominal pain Swelling, redness, discharge or bleeding from your incision or episiotomy site Your incision begins to separate Problems urinating (including inability to urinate or burning while urinating). Visual changes Severe headache Flu-like symptoms Pain or redness in one of both of your breasts Pain, warmth, tenderness or swelling in your legs, especially the calf area Frequent nausea and vomiting Symptoms of depression or anxiety If you experience any of the following, call 911 or go to the nearest Emergency Room. Chest pain Problems breathing Seizure activity Partial or complete paralysis of a body part, slurred speech, weakness or drooping of the face, or a sudden inability to walk or hold your balance Allergies/Adverse Reactions: Allergies No Known Allergies Allergy (Verified 05/31/18 07:44) Medications to take at Discharge vitamin#30 30 mg iron-10 mg iron-folic acid 1 mg-omg3 capsule 1 cap PO cap 12/30/17 Ursodiol 300 mg PO TID 05/29/18 Valacyclovir HCl [Valacyclovir] 2,000 mg PO Q12H PRN 05/30/18 Please Follow Up With: Felicia Heath MD - [phone] When: Call to make an appointment with your doctor in 6 weeks. If you had elevated Blood pressure or 4th degree laceration you will need to be seen in 2 weeks. Primary Care Physician: Care Physician,No Primary [Primary Care Provider] - Test Results: Test results from this visit will be discussed in further detail at your follow-up appointment, if applicable.
--- NOTE | 2018-06-02 07:45 | DCINST_ITS ---
Discharge Diet: No Restrictions Discharge Activity: Return to Normal Activity, May not drive while taking narcotic pain medications., May Shower May resume sexual activity in: 4-6 weeks Call your doctor if your incision/area has: Continuous Slow Oozing, Sudden Increased Bleeding, Increased Pain/ Swelling, Increased Redness, Foul Smelling Discharge Additional Instructions: If you experience any of the following, contact your healthcare provider. * Bleeding that soaks a pad every hour for 2 hours * Fever 100.4 or higher * Unrelieved incision or abdominal pain * Swelling, redness, discharge or bleeding from your incision or episiotomy site * Your incision begins to separate * Problems urinating (including inability to urinate or burning while urinating). * Visual changes * Severe headache * Flu-like symptoms * Pain or redness in one of both of your breasts * Pain, warmth, tenderness or swelling in your legs, especially the calf area * Frequent nausea and vomiting * Symptoms of depression or anxiety If you experience any of the following, call 911 or go to the nearest Emergency Room. * Chest pain * Problems breathing * Seizure activity * Partial or complete paralysis of a body part, slurred speech, weakness or drooping of the face, or a sudden inability to walk or hold your balance Allergies/Adverse Reactions: Allergies No Known Allergies Allergy (Verified 05/31/18 07:44) Medications to take at Discharge vitamin#30 30 mg iron-10 mg iron-folic acid 1 mg-omg3 capsule 1 cap PO cap 12/30/17 Ursodiol 300 mg PO TID 05/29/18 Valacyclovir HCl [Valacyclovir] 2,000 mg PO Q12H PRN 05/30/18 Please Follow Up With: Felicia Heath MD - [phone] When: Call to make an appointment with your doctor in 6 weeks. If you had elevated Blood pressure or 4th degree laceration you will need to be seen in 2 weeks. Primary Care Physician: Care Physician,No Primary [Primary Care Provider] - Test Results: Test results from this visit will be discussed in further detail at your follow- up appointment, if applicable.
[2018-06-02 08:00] VITALS: BP 94/70; PULSE 95; RESP 16; TEMP 36.4
[2018-06-02] MEDS: Senna/Docusate Sodium 1 Tablet PO (08:55)
--- NOTE | 2018-06-02 10:03 | CASEMGMT ---
Addendum entered and electronically signed by Brenda Tam 06/02/18 16:24: Reviewed and approve [employer] student documentation below. -Brenda Tam, GWENDOLYN-Emmanuelle, HAIRSPRING INSPECTOR Original Note: Social Work Labor and Delivery Date of Referral: 06/01/18 Time of Referral: 1424 Referred by: DR. Heath Date of intervention: 06/02/18 Time of intervention: 945am Reason for referral: FOB in residential; out for delivery History Obtained from: medical record and mother of the baby (MOB) Italia Mata. Household Composition: MOB lives with father of the baby Yosi Moreland and now their Farooq. MOB denied any history of domestic violence or safety concerns. Patients parent/guardian status: MOB and FOB are . MOB and FOB do not have any children outside heir relationship. Medical History: MOB is to 1 after of baby Farooq. MOB started PNC at Dr. Foy's office in [place] prior to 15 week transfer of care to Dr Heath in [place]. Baby Farooq was born on [birth year] at 5lbs 6oz with scores of 9 and 9. Educational Status: MOB has a bachelor's degree. MOB confirms to be able to read, write, and comprehend. 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 Childcare/givers: MOB and FOB will be primary caregivers. MOB reported that her grandmother will be supplemental caregiver. Transportation: MOB reports no issues with transportation as MOB drives and has own vehicle. Programs/agencies involved: MOB is connected with job and family services. MOB plans to connect with WIC. MOB declined [facility] referral. Children Services/Legal Issues: MOB reports that MOB and FOB do not have a history of children services. MEÑO is currently in [facility] for the offense of using marijuana. MEÑO will be in residential from March 2018 to Jul 03 2018 and will return home. Behavioral Health Issues: Mental Health History: MOB does not have any mental health diagnoses. MOB denied any thoughts of suicide currently or during . Substance Use History: MOB denies any usage past of present of substances. Family History: MOB did not identify any family history. Drug Screens: MOB was no administered any drug screens. Family/Social stressors: MOB's main stressor is having FOB in residential. Support Systems: MOB reported entire family to be support system. PPD/ Shaken baby/ safe sleeping: MOB reported to understand presented information of PPD/ shaken baby/ safe sleeping and provided accurate information of precautions to social welfare administrator trestle mainternance laborer. ASSESSMENT: MOB was in room with baby and grandmother. MOB answered all questions appropriately. MOB was calm and gently caring for baby Farooq during conversation. MOB spoke about FOB being in residential by saying some people are stupid and smoke weed. MOB provided information about FOB being that he went to residential in March and will be released July 03. MOB reports to have no safety concerns with FOB for when he returns home. MOB reports to be doing well with work and stressor. MOB reports to enjoy using essential oils to relieve stress and stay healthy. MOB's grandmother was present for conversation per verbal consent of MOB and reporting to be comfortable with her in room. PLAN: MOB to home with baby. Social work provided [facility] resources packet, PPD information, WIC/HMG information. No other services indicated or requested at this time. -Lisa Griffith, METAL WE[employer]HER Student Dinkey Engine Firer/Fireman.
[2018-06-02] MEDS: Naproxen 250 MG Tablet 500 MG PO (16:33)
[2018-06-02 17:52] VITALS: BP 118/66; PULSE 116; RESP 16; TEMP 36.2
[2018-06-02 18:50] VITALS: BP 111/73; PULSE 110; RESP 18; TEMP 36.7; O2SAT 98
--- NOTE | 2018-06-06 17:47 | NURSING ---
Mom has not been feeding at breast or pumping much either. Mom cancelled her consult this week and was in tears. Mom is disappointed but feels she is doing the right thing giving formula at this time. Otherwise doing well. Lainey BENSON
== END 2018-06-02 18:50 | disposition home or self-care (01) | DRG 805 ==
PROVIDERS: Admitting Provider Obstetrics & Gynecology; Referring Provider Obstetrics & Gynecology; Visit Provider Obstetrics & Gynecology
DX: O60.14X0 Preterm labor third trimester with preterm delivery third trimester, not applicable or unspecified (principal); K83.1 Obstruction of bile duct; Z37.0 Single live birth; O26.62 Liver and biliary tract disorders in childbirth; O70.1 Second degree perineal laceration during delivery; Z3A.37 37 weeks gestation of pregnancy
CPT/HCPCS: 80053; 85025; 86850; 86900; 99218; J7120; G0378

== ENCOUNTER → 2019-04-18 13:57 | Outpatient (CLI) | payer MEDICAID, SELFPAY ==
[2019-04-18 13:45] VITALS: BMI 19.1
[2019-04-18 15:02] LABS: Absolute Lymphocyte Count 1.41 X10^3/uL (0.83-4.51); Absolute Neutrophil Count 2.7 X10^3/uL (2.0-7.7); Basophil# 0.02 X10^3/uL; Basophil% 0.4 % (0-1); Eosinophil# 0.07 X10^3/uL; Eosinophils% 1.5 % (0-5); Hematocrit 39.9 % (37-47); Hemoglobin 13.4 g/dL (12.0-15.0); Lymphocyte # 1.41 X10^3/ul (4.0); Lymphocyte % 30.7 % (19-41); Mean Corp Hgb Conc 33.6 g/dL (32-36); Mean Corpuscular Hgb 30.5 pg (27.0-32.0); Mean Corpuscular Volume 90.9 fL (81-99); Mean Platelet Vol. 10.2 fl (6.2-12.0); Monocyte# 0.36 X10^3/uL; Monocyte% 7.8 % (0-10); NRBC Flagged by Analyzer 0 % (0-5); Neutrophil # 2.73 X10^3/uL (2.7-7.7); Neutrophil % 59.4 % (47-70); Platelet Count 325 K/mm3 (150-450); RBC Distribution Width CV 11.9 % (11.6-14.6); RBC Distribution Width SD 39.6 fl (35.1-43.9); Red Blood Count 4.39 M/mm3 (4.2-5.4); White Blood Count 4.6 K/mm3 (4.4-11.0)
[2019-04-18 18:28] LABS: Amphetamine Urine VISTA NEGATIVE (<1000 ng/mL); Barbiturate Urine VISTA NEGATIVE (< 200 ng/mL); Benzodiazepine Urine VISTA NEGATIVE (< 200 ng/mL); Cocaine Urine VISTA NEGATIVE (< 300 ng/mL); Ecstacy Urine VISTA NEGATIVE (< 500 ng/mL); Methadone Urine VISTA NEGATIVE (< 300 ng/mL); PCP Urine VISTA NEGATIVE (< 25 ng/mL); THC Urine VISTA NEGATIVE (< 50 ng/mL); Vista UDS pH Range 6
[2019-04-18 19:15] LABS: Chlamydia Trachomatis by PCR Negative (Negative); Neisserai gonorrhoeae by PCR Negative (Negative); Probe Check PASS; Sample Adequacy Control PASS; Specimen Processing Control PASS
[2019-04-19 03:26] LABS: Rapid Plasmin Reagin (RPR) NONREACTIVE (NONREACTIVE)
[2019-04-19 11:14] LABS: HIV - WCH Non-Reactive (Nonreactive); Hepatitis B Surface Antigen Non-Reactive (Nonreactive); Hepatitis C Antibody Non-Reactive (Nonreactive); Rubella IgG 36.7 IU/mL
== END ==
PROVIDERS: Referring Provider Obstetrics & Gynecology; Visit Provider Obstetrics & Gynecology
DX: Z34.90 Encounter for supervision of normal pregnancy, unspecified, unspecified trimester (principal); Z87.19 Personal history of other diseases of the digestive system; Z87.59 Personal history of other complications of pregnancy, childbirth and the puerperium
CPT/HCPCS: 36415; 80307; 85025; 86592; 86703; 86762; 86803; 86850; 86900; 86901; 87086; 87340; 87491; 87591

== ENCOUNTER → 2019-05-24 11:22 | Outpatient (CLI) | payer MEDICAID, SELFPAY ==
[2019-05-18 14:01] VITALS: BMI 19.1
[2019-05-24 13:31] LABS: ALB/GLOB Ratio 0.8 RATIO (0.9-2.4); AST(SGOT) 18 U/L (15-37); Alanine Aminotransfer ALT/SGPT 21 U/L (13-56); Albumin, Serum 3.2 g/dL (3.2-5.0); Alkaline Phosphatase 78 U/L (45-117); Anion Gap 7 (5-15); BUN 7 mg/dL (7-18); BUN/Creat Ratio 16.6 RATIO (10-20); Calcium,Total 8.8 mg/dL (8.5-10.1); Chloride 106 mmol/L (98-107); Creatinine, Serum 0.42 mg/dL (0.55-1.02); EST Glomerular Filtration Rate 196 mL/min (>60); Est Glom Filt Rate - Afr Amer 237 mL/min (>60); Globulin 3.8 g/dL (2.2-4.2); Glucose 73 mg/dL (74-106); Potassium 3.9 mmol/L (3.5-5.1); Sodium Level 138 mmol/L (136-145)
== END ==
PROVIDERS: Referring Provider Obstetrics & Gynecology; Visit Provider Obstetrics & Gynecology
DX: R79.89 Other specified abnormal findings of blood chemistry (principal)
CPT/HCPCS: 36415; 80053

== ENCOUNTER → 2019-06-27 10:58 | Outpatient (CLI) | payer MEDICAID, SELFPAY ==
[2019-06-20 13:18] VITALS: BMI 19.1
[2019-06-27 11:40] LABS: ALB/GLOB Ratio 0.7 RATIO (0.9-2.4); AST(SGOT) 20 U/L (15-37); Alanine Aminotransfer ALT/SGPT 19 U/L (13-56); Albumin, Serum 2.9 g/dL (3.2-5.0); Alkaline Phosphatase 84 U/L (45-117); Anion Gap 5 (5-15); BUN 8 mg/dL (7-18); BUN/Creat Ratio 17.8 RATIO (10-20); Calcium,Total 8.9 mg/dL (8.5-10.1); Chloride 107 mmol/L (98-107); Creatinine, Serum 0.45 mg/dL (0.55-1.02); EST Glomerular Filtration Rate 182 mL/min (>60); Est Glom Filt Rate - Afr Amer 220 mL/min (>60); Globulin 4.2 g/dL (2.2-4.2); Glucose 73 mg/dL (74-106); Potassium 3.7 mmol/L (3.5-5.1); Protein, Total 7.1 g/dL (6.4-8.2); Sodium Level 137 mmol/L (136-145)
== END ==
PROVIDERS: Referring Provider Obstetrics & Gynecology; Visit Provider Obstetrics & Gynecology
DX: L50.9 Urticaria, unspecified (principal)
CPT/HCPCS: 80053

== ENCOUNTER → 2019-07-20 14:48 | Outpatient (CLI) | payer MEDICAID, SELFPAY ==
[2019-07-20 14:21] VITALS: BMI 19.1
== END ==
PROVIDERS: Referring Provider Obstetrics & Gynecology; Visit Provider Obstetrics & Gynecology
DX: Z36.9 Encounter for antenatal screening, unspecified (principal)
CPT/HCPCS: 36415

== ENCOUNTER → 2019-08-16 11:42 | Outpatient (CLI) | payer MEDICAID, SELFPAY ==
[2019-07-20 14:21] VITALS: BMI 19.1
[2019-08-16 12:28] LABS: Protein, Urine (Random) 27.5 mg/dL (<11.9); Protein:Creat Ratio 110 mg/g CRE (0-200)
[2019-08-16 12:29] LABS: ALB/GLOB Ratio 0.7 RATIO (0.9-2.4); AST(SGOT) 32 U/L (15-37); Alanine Aminotransfer ALT/SGPT 38 U/L (13-56); Albumin, Serum 3.1 g/dL (3.2-5.0); Alkaline Phosphatase 117 U/L (45-117); Anion Gap 6 (5-15); BUN 9 mg/dL (7-18); BUN/Creat Ratio 16.9 RATIO (10-20); Chloride 106 mmol/L (98-107); Creatinine, Serum 0.53 mg/dL (0.55-1.02); EST Glomerular Filtration Rate 150 mL/min (>60); Est Glom Filt Rate - Afr Amer 181 mL/min (>60); Globulin 4.4 g/dL (2.2-4.2); Glucose 70 mg/dL (74-106); Potassium 3.6 mmol/L (3.5-5.1); Protein, Total 7.5 g/dL (6.4-8.2); Sodium Level 137 mmol/L (136-145)
[2019-08-16 13:10] LABS: Absolute Lymphocyte Count 1.11 X10^3/uL (0.83-4.51); Basophil# 0.01 X10^3/uL; Basophil% 0.2 % (0-1); Hematocrit 35.5 % (37-47); Hemoglobin 11.7 g/dL (12.0-15.0); Lymphocyte # 1.11 X10^3/ul (4.0); Lymphocyte % 25.2 % (19-41); Mean Corpuscular Hgb 31.8 pg (27.0-32.0); Mean Corpuscular Volume 96.5 fL (81-99); Mean Platelet Vol. 9.7 fl (6.2-12.0); Monocyte# 0.24 X10^3/uL; Monocyte% 5.5 % (0-10); NRBC Flagged by Analyzer 0 % (0-5); Neutrophil # 3.02 X10^3/uL (2.7-7.7); Neutrophil % 68.6 % (47-70); Platelet Count 299 K/mm3 (150-450); RBC Distribution Width CV 11.9 % (11.6-14.6); Red Blood Count 3.68 M/mm3 (4.2-5.4); White Blood Count 4.4 K/mm3 (4.4-11.0)
[2019-08-16 13:25] LABS: Glucose Challenge Gest 1H 50g 138 mg/dL (70-140)
== END ==
PROVIDERS: Obstetrics & Gynecology; Referring Provider Nurse Practitioner Women's Health; Visit Provider Nurse Practitioner Women's Health
DX: O99.719 Diseases of the skin and subcutaneous tissue complicating pregnancy, unspecified trimester (principal); Z3A.26 26 weeks gestation of pregnancy; L29.9 Pruritus, unspecified
CPT/HCPCS: 36415; 80053; 82570; 82950; 84156; 85025

== ENCOUNTER → 2019-08-21 10:06 | Outpatient (CLI) | payer MEDICAID, SELFPAY ==
[2019-07-20 14:21] VITALS: BMI 19.1
[2019-08-17 14:10] VITALS: BMI 19.1
[2019-08-21 11:10] LABS: Glucose GTT-Gestation. Fasting 71 mg/dL (<105)
[2019-08-21 11:51] LABS: Glucose GTT-Gestational 1 Hr 117 mg/dL (<190)
[2019-08-21 13:11] LABS: Glucose GTT-Gestational 2 Hr 94 mg/dL (<165)
[2019-08-21 15:19] LABS: Glucose GTT-Gestational 3 Hr 64 L (<145)
== END ==
PROVIDERS: Referring Provider Obstetrics & Gynecology; Visit Provider Obstetrics & Gynecology
DX: O99.810 Abnormal glucose complicating pregnancy (principal); Z3A.00 Weeks of gestation of pregnancy not specified
CPT/HCPCS: 36415; 82951; 82952

== ENCOUNTER → 2019-09-21 11:58 | Outpatient (CLI) | payer MEDICAID, SELFPAY ==
[2019-09-14 14:18] VITALS: BMI 19.9
[2019-09-21 13:05] LABS: ALB/GLOB Ratio 0.6 RATIO (0.9-2.4); AST(SGOT) 53 U/L (15-37); Alanine Aminotransfer ALT/SGPT 60 U/L (13-56); Albumin, Serum 2.9 g/dL (3.2-5.0); Alkaline Phosphatase 159 U/L (45-117); Anion Gap 5 (5-15); BUN 7 mg/dL (7-18); Calcium,Total 8.7 mg/dL (8.5-10.1); Chloride 107 mmol/L (98-107); Creatinine, Serum 0.54 mg/dL (0.55-1.02); EST Glomerular Filtration Rate 148 mL/min (>60); Est Glom Filt Rate - Afr Amer 179 mL/min (>60); Globulin 4.6 g/dL (2.2-4.2); Glucose 67 mg/dL (74-106); Potassium 3.8 mmol/L (3.5-5.1); Protein, Total 7.5 g/dL (6.4-8.2); Sodium Level 136 mmol/L (136-145)
== END ==
PROVIDERS: Referring Provider Nurse Practitioner Women's Health; Visit Provider Nurse Practitioner Women's Health
DX: Z87.59 Personal history of other complications of pregnancy, childbirth and the puerperium (principal); Z87.19 Personal history of other diseases of the digestive system
CPT/HCPCS: 36415; 80053

== ENCOUNTER 2019-09-24 18:10 | Outpatient (CLI) | payer MEDICAID, SELFPAY ==
[2019-09-14 14:18] VITALS: BMI 19.9
--- NOTE | 2019-09-24 16:50 | US_ITS ---
STUDY: SECOND AND THIRD TRIMESTER OBSTETRICAL ULTRASOUND REASON FOR EXAM: Female, 24 years old. Growth. LMP: 12-15-19. TECHNIQUE: Transabdominal TECHNICAL QUALITY: Adequate. PRIOR ULTRASOUND: None. FINDINGS: There is a single intrauterine fetus. The fetus is in a cephalic presentation. There is demonstrated cardiac activity with a heart rate of 123 bpm. There is a normal amniotic fluid volume. The largest amniotic fluid pocket measures 4.04 cm. The amniotic fluid index (MICHAEL) is 9.3 cm. The placenta is anterior in location and is not low lying. There are Grade 2 placental changes. The cervix measures 3.4 cm in length. The adnexal regions are not visualized. BIOMETRY: BPD: 7.27 cm: 29 weeks, 2 days HC: 29.17 cm: 32 weeks, 2 days AC: 27.6 cm: 31 weeks, 5 days FL: 6.39 cm: 33 weeks, 1 days CI: 73 FL/BPD: 88 FL/HC: FL/AC: 23 HC/AC: 1.06 age by current US: 31 weeks, 5 days. YI by current US: 11-21-19. Estimated weight: 1862 grams, +/- 272 grams, 32 %. Age by LMP: 32 weeks, 1 days. YI by LMP: 11-18-19.. ANATOMY: anatomy was not performed however a double nuchal cord was noted. US/OB Limited With Biometrics IMPRESSION: 1. Live single intrauterine at 31 weeks, 5 days. YI is 11-21-19. 2. EFW of 1862 g. 3. MICHAEL of 9.3 cm. 4. Anterior grade 2 placenta. 5. Closed cervix. 6. Vertex presentation. 7. Incidental finding of a double nuchal cord. Electronically Signed: Jori Roberts DO at 18:31 EDT Tel [phone], Service support ,
--- NOTE | 2019-09-24 17:06 | US_ITS ---
STUDY: OBSTETRICAL ULTRASOUND - BIOPHYSICAL PROFILE REASON FOR EXAM: Female, 24 years old. well being. LMP: 02-11-19. PRIOR ULTRASOUND: 09-24-19. TECHNIQUE: Transabdominal TECHNICAL QUALITY: Adequate. FINDINGS: There is a single intrauterine fetus. The fetus is in a cephalic presentation. There is demonstrated cardiac activity with a heart rate of 123 bpm. There is a normal amniotic fluid volume. The largest amniotic fluid pocket measures 4.04 cm. The amniotic fluid index (MICHAEL) is 9.3 cm. The placenta is anterior in location and is not low lying. There are Grade 2 placental changes. Age by LMP: 32 weeks, 1 days. YI by LMP: 11-18-19. age by current US: 31 weeks, 5 days. YI by current US: 11-21-19. Incidental finding of a double nuchal cord. BIOPHYSICAL PROFILE: Breathing Movements (FBM): 2 Gross Body Movements (GBM): 0 Tone (FT): 2 Amniotic Fluid Volume (AFV): 2 TOTAL SCORE: US/Biophysical Profile IMPRESSION: biophysical profile of 08/05. Electronically Signed: Jori Roberts DO at 18:33 EDT Tel [phone], Service support ,
[2019-09-24 18:21] VITALS: BMI 19.8
--- NOTE | 2019-09-25 03:20 | OB.TRI.PN ---
Progress Notes Date of Service: 09/25/19 Progress Note: Patient presents for triage evaluation secondary to 08/05 BPP FHT: 130 Moderate variability reactive no decelerations category I tracing [place]: no rgular Contractions Assessment and plan: 10/07 BPP Reactive NST, reassuring maternal and status patient discharged to home to follow-up for repeat BPP tomorrow. See problem list details for additional plan information. - Problem List (1) Abnormal ultrasound Status: Acute Comment: 10/07 bpp 2 off for movement. plan repeat bpp in 24 hours to follow (2) Elevated liver enzymes Status: Acute Comment: suspect cholestasis, nl growth/ahmet 09/23, plan twice daily kick counts, 2x wkly BPP, Ursodiol, plan delivery @37 wks (3) Double nuchal cord Status: Acute Comment: incidental finding on ultrasound, plan twice daily kick counts and already getting twice weekly BPPs Multi Select Codes - Urinary/Genital Urinary/Genital CPT Codes: 01346-07 non-stress test Interp
== END 2019-09-24 19:20 | disposition home or self-care (01) ==
LOC: US 18:13 → WPOUT 18:14 → OBT 18:14
PROVIDERS: Referring Provider Obstetrics & Gynecology; Visit Provider Obstetrics & Gynecology
DX: O28.3 Abnormal ultrasonic finding on antenatal screening of mother (principal); Z3A.00 Weeks of gestation of pregnancy not specified; R74.8 Abnormal levels of other serum enzymes; O69.81X0 Labor and delivery complicated by cord around neck, without compression, not applicable or unspecified
CPT/HCPCS: 59025; 59050; 76816; 76818; 99218; G0378

== ENCOUNTER → 2019-09-25 16:33 | Outpatient (CLI) | payer MEDICAID, SELFPAY ==
[2019-09-24 18:21] VITALS: BMI 19.8
--- NOTE | 2019-09-25 16:34 | US_ITS ---
STUDY: OBSTETRICAL ULTRASOUND - BIOPHYSICAL PROFILE REASON FOR EXAM: Female, 24 years old. well being. LMP: 02/11/2019. PRIOR ULTRASOUND: 09/24/2019. TECHNIQUE: Transabdominal TECHNICAL QUALITY: Adequate. FINDINGS: There is a single intrauterine fetus. The fetus is in a cephalic presentation. There is demonstrated cardiac activity with a heart rate of 143 bpm. There is a normal amniotic fluid volume. The largest amniotic fluid pocket measures 5.6 cm. The amniotic fluid index (MICHAEL) is 0.70 cm. The placenta is anterior in location and is not low lying. There are Grade 2 placental changes. Age by LMP: 32 weeks, 2 days. YI by LMP: 11/18/2019. age by prior US: 31 weeks, 6 days. YI by prior US: 11/21/2019. Gender: Indeterminant An incidental finding is the presence of a double nuchal cord. BIOPHYSICAL PROFILE: Breathing Movements (FBM): 2 Gross Body Movements (GBM): 2 Tone (FT): 2 Amniotic Fluid Volume (AFV): 2 TOTAL SCORE: 8 / 8 US/Biophysical Profile IMPRESSION: Normal biophysical profile of 8. Electronically Signed: Jori Roberts DO at 17:36 EDT Tel [phone], Service support ,
[2019-09-25 18:26] LABS: AST(SGOT) 103 U/L (15-37); Alanine Aminotransfer ALT/SGPT 129 U/L (13-56); Alkaline Phosphatase 182 U/L (45-117); Bilirubin, Direct 0.15 mg/dL (0.00-0.30); Globulin 4.8 g/dL (2.2-4.2); Protein, Total 7.8 g/dL (6.4-8.2)
[2019-09-27 12:09] LABS: HEPATITIS B SURFACE AG Negative (Negative); Hepatitis A AB, Total Negative (Negative); Hepatitis A IgM Antibody Negative (Negative); Hepatitis B Core AB IgM Negative (Negative); Hepatitis B Core Ab Total Negative (Negative); Hepatitis C Ab <0.1 s/co ratio (0.0-0.9)
[2019-09-27 15:30] LABS: CMV Acute Antibody IgM < 30.0 AU/mL (0.0-29.9); CMV Antibody IgG < 0.60 U/mL (0.00-0.59); Hep B Surface Antibodies Non Reactive (.)
== END ==
PROVIDERS: Referring Provider Obstetrics & Gynecology; Visit Provider Obstetrics & Gynecology
DX: R74.8 Abnormal levels of other serum enzymes (principal)
CPT/HCPCS: 36415; 76818; 80076; 86644; 86645; 86704; 86705; 86706; 86708; 86709; 86803; 87340

== ENCOUNTER → 2019-09-27 14:43 | Outpatient (CLI) | payer MEDICAID, SELFPAY ==
[2019-09-27 15:08] LABS: Absolute Lymphocyte Count 1.01 X10^3/uL (0.83-4.51); Absolute Neutrophil Count 2.7 X10^3/uL (2.0-7.7); Basophil# 0.01 X10^3/uL; Basophil% 0.3 % (0-1); Hematocrit 34.9 % (37-47); Hemoglobin 11.6 g/dL (12.0-15.0); Lymphocyte # 1.01 X10^3/ul (4.0); Lymphocyte % 25.5 % (19-41); Mean Corp Hgb Conc 33.2 g/dL (32-36); Mean Corpuscular Hgb 30.4 pg (27.0-32.0); Mean Corpuscular Volume 91.6 fL (81-99); Mean Platelet Vol. 10.2 fl (6.2-12.0); Monocyte# 0.24 X10^3/uL; Monocyte% 6.1 % (0-10); NRBC Flagged by Analyzer 0 % (0-5); Neutrophil # 2.69 X10^3/uL (2.7-7.7); Neutrophil % 67.8 % (47-70); POSITIVE MORPHOLOGY YES; Platelet Count 272 K/mm3 (150-450); RBC Distribution Width SD 39.5 fl (35.1-43.9); Red Blood Count 3.81 M/mm3 (4.2-5.4)
[2019-09-27 15:27] LABS: Differential Indicated SCAN CRITERIA MET
[2019-09-27 15:29] LABS: Anisocytosis RARE; Platelet Estimate ADEQUATE (ADEQ); Red Cell Morphology N CHROM NORMAL (NORM C&C)
[2019-09-27 15:37] LABS: Protein, Urine (Random) 14.3 mg/dL (<11.9); Protein:Creat Ratio 243 mg/g CRE (0-200)
== END ==
PROVIDERS: Referring Provider Obstetrics & Gynecology; Visit Provider Obstetrics & Gynecology
DX: R74.0 Nonspecific elevation of levels of transaminase and lactic acid dehydrogenase [LDH] (principal)
CPT/HCPCS: 36415; 82570; 84156; 85025

== ENCOUNTER → 2019-10-05 13:55 | Outpatient (CLI) | payer MEDICAID, SELFPAY ==
--- NOTE | 2019-10-05 13:59 | US_ITS ---
STUDY: OBSTETRICAL ULTRASOUND - BIOPHYSICAL PROFILE REASON FOR EXAM: Female, 24 years old WELL BEING -- HX OF DOUBLE NUCHAL CORD LMP: 02/11/2019. PRIOR ULTRASOUND: Comparison is made with prior sonogram dated 09/25/2019. TECHNIQUE: Transabdominal TECHNICAL QUALITY: Adequate. FINDINGS: There is a single intrauterine fetus. The fetus is in a cephalic presentation. There is demonstrated cardiac activity with a heart rate of 147 bpm. There is a normal amniotic fluid volume. The largest amniotic fluid pocket measures 3.9 cm x 5.6 cm. The amniotic fluid index (MICHAEL) is 13.8 cm. The placenta is anterior in location and is not low lying. There are Grade 2 placental changes. Age by LMP: 33 weeks, 5 days. YI by LMP: 11/18/2019. age by prior US: 33 weeks, 2 days. YI by prior US: 11/21/2019. Gender: Female BIOPHYSICAL PROFILE: Breathing Movements (FBM): 2 Gross Body Movements (GBM): 2 Tone (FT): 2 Amniotic Fluid Volume (AFV): 2 TOTAL SCORE: 8 / 8 US/Biophysical Profile IMPRESSION: Normal biophysical profile of 8/8. Electronically Signed: Pefrecto High, at 15:07 EDT , Service support ,
== END ==
PROVIDERS: Referring Provider Obstetrics & Gynecology; Visit Provider Obstetrics & Gynecology
DX: R74.8 Abnormal levels of other serum enzymes (principal)
CPT/HCPCS: 76818

== ENCOUNTER → 2019-10-06 09:25 | Outpatient (CLI) | payer MEDICAID, SELFPAY ==
--- NOTE | 2019-10-06 09:25 | US_ITS ---
STUDY: ABDOMINAL ULTRASOUND REASON FOR EXAM: Female, 24 years old. Cholestasis. Elevated LFTs. TECHNIQUE: Transabdominal ultrasound was performed with real-time and static ambrosio scale imaging. TECHNICAL QUALITY: Study limited by bowel gas. COMPARISON: None. FINDINGS: Liver: The liver measures 13.1 cm. There is normal echogenicity of the liver. The bile ducts are dilated. There is hepatic color flow. The direction of portal flow is hepatopetal. There is no demonstrated mass lesion. Gallbladder: Normal distended gallbladder. The gallbladder wall measures 2 mm. There is a negative sonographic Rincon''s sign. There is no pericholecystic fluid. There are no gallstones. Common Bile Duct (C.B.D.): The common bile duct measures 3 mm. Pancreas: Normal size of the head, body and tail of the pancreas. There is normal echogenicity of the pancreas. There is no demonstrated pancreatic mass or cyst. Spleen: Normal size of the spleen. The spleen measures 9.7 cm. Right Kidney: Normal size of the right kidney. The right kidney measures 10.7 cm. Normal renal cortex. There is no demonstrated renal mass or cyst. There is moderate hydronephrosis of the right kidney. Left Kidney: Normal size of the left kidney. The left kidney measures 9.9 cm. Normal renal cortex. There is no demonstrated renal mass or cyst. There is mild hydronephrosis of the left kidney. Aorta: The aorta is normal in caliber. I.V.C.: The IVC is patent. There is no ascites. US/Abdomen Complete IMPRESSION: Dilated intrahepatic biliary ducts. Normal caliber common bile duct. Normal sonographic appearance of the gallbladder. Moderate right hydronephrosis and mild left hydronephrosis. Electronically Signed: Luigi Galan, at 16:45 EDT Tel , Service support ,
== END ==
PROVIDERS: Referring Provider Obstetrics & Gynecology; Visit Provider Obstetrics & Gynecology
DX: O26.613 Liver and biliary tract disorders in pregnancy, third trimester (principal); K83.1 Obstruction of bile duct; Z3A.00 Weeks of gestation of pregnancy not specified
CPT/HCPCS: 76700

== ENCOUNTER → 2019-10-08 13:43 | Outpatient (CLI) | payer MEDICAID, SELFPAY ==
--- NOTE | 2019-10-08 13:44 | US_ITS ---
STUDY: OBSTETRICAL ULTRASOUND - BIOPHYSICAL PROFILE REASON FOR EXAM: Female, 24 years old WELL BEING LMP: 02/11/2019. PRIOR ULTRASOUND: Comparison is made with prior study 10/05/2019. TECHNIQUE: Transabdominal TECHNICAL QUALITY: Adequate. FINDINGS: There is a single intrauterine fetus. The fetus is in a cephalic presentation. There is demonstrated cardiac activity with a heart rate of 133 bpm. There is a normal amniotic fluid volume. The largest amniotic fluid pocket measures 5.1 cm. The amniotic fluid index (MICHAEL) is 11.25 cm. The placenta is anterior in location and is not low lying. There are Grade 2 placental changes. Age by LMP: 34 weeks, 1 days. YI by LMP: 11/18/2019. BIOPHYSICAL PROFILE: Breathing Movements (FBM): 2 Gross Body Movements (GBM): 2 Tone (FT): 2 Amniotic Fluid Volume (AFV): 2 TOTAL SCORE: 8 / 8 US/Biophysical Prof W/O Non Stres IMPRESSION: Normal biophysical profile of 10/05. Electronically Signed: Perfecto High, at 15:12 EDT , Service support ,
== END ==
PROVIDERS: Referring Provider Obstetrics & Gynecology; Visit Provider Obstetrics & Gynecology
DX: R74.8 Abnormal levels of other serum enzymes (principal)
CPT/HCPCS: 76819

== ENCOUNTER → 2019-10-11 13:25 | Outpatient (CLI) | payer MEDICAID, SELFPAY ==
--- NOTE | 2019-10-11 13:26 | US_ITS ---
STUDY: OBSTETRICAL ULTRASOUND - BIOPHYSICAL PROFILE REASON FOR EXAM: Female, 24 years old WELL BEING, DOUBLE NUCHAL CORD LMP: 02/11/2019. PRIOR ULTRASOUND: Comparison is made with prior study dated 10/08/2019. TECHNIQUE: Transabdominal TECHNICAL QUALITY: Adequate. FINDINGS: There is a single intrauterine fetus. The fetus is in a cephalic presentation. There is demonstrated cardiac activity with a heart rate of 130 bpm. There is a normal amniotic fluid volume. The amniotic fluid index (MICHAEL) is 16.1 cm. The placenta is anterior in location and is not low lying. There are Grade 2 placental changes. BIOPHYSICAL PROFILE: Breathing Movements (FBM): 2 Gross Body Movements (GBM): 2 Tone (FT): 2 Amniotic Fluid Volume (AFV): 2 TOTAL SCORE: US/Biophysical Profile IMPRESSION: Normal biophysical profile of 10/05. Electronically Signed: Perfecto High, at 14:45 EDT , Service support ,
== END ==
PROVIDERS: Referring Provider Obstetrics & Gynecology; Visit Provider Obstetrics & Gynecology
DX: R74.8 Abnormal levels of other serum enzymes (principal)
CPT/HCPCS: 76818

== ENCOUNTER → 2019-10-15 | Outpatient (CLI) | payer MEDICAID, SELFPAY ==
--- NOTE | 2019-10-15 12:28 | US_ITS ---
STUDY: OBSTETRICAL ULTRASOUND - BIOPHYSICAL PROFILE REASON FOR EXAM: Female, 24 years old double nuchal cord. well-being. LMP: 02/11/2019. PRIOR ULTRASOUND: 09/24/2019, 09/25/2019, 10/05/2019, 10/08/2019 and 10/11/2019 TECHNIQUE: Transabdominal TECHNICAL QUALITY: Adequate. FINDINGS: There is a single intrauterine fetus. The fetus is in a cephalic presentation. There is demonstrated cardiac activity with a heart rate of 143 bpm. There is a normal amniotic fluid volume. The largest amniotic fluid pocket measures 5.2 cm. The amniotic fluid index (MICHAEL) is 11.92 cm. The placenta is anterior in location and is not low lying. There are Grade 2 placental changes. Age by LMP: 35 weeks, 1 days. YI by LMP: 11/18/2019.. age by initial US: 34 weeks, 5 days. YI by initial US: 11/21/2019. BIOPHYSICAL PROFILE: Breathing Movements (FBM): 2 Gross Body Movements (GBM): 2 Tone (FT): 2 Amniotic Fluid Volume (AFV): 2 TOTAL SCORE: 8 / 8 US/Biophysical Profile IMPRESSION: Normal biophysical profile of 8/8. Electronically Signed: Jori Roberts DO at 22:00 EDT Tel [phone], Service support ,
== END | disposition home or self-care (01) ==
LOC: US 12:28
PROVIDERS: Referring Provider Obstetrics & Gynecology; Visit Provider Obstetrics & Gynecology
DX: R74.8 Abnormal levels of other serum enzymes (principal)
CPT/HCPCS: 76818

== ENCOUNTER → 2019-10-18 | Outpatient (CLI) | payer MEDICAID, SELFPAY ==
--- NOTE | 2019-10-18 13:09 | US_ITS ---
STUDY: OBSTETRICAL ULTRASOUND - BIOPHYSICAL PROFILE REASON FOR EXAM: Female, 24 years old. well-being. PRIOR ULTRASOUND: 10/15/19 TECHNIQUE: Transabdominal ultrasound evaluation was performed. FINDINGS: There is a single intrauterine fetus. The fetus is in a cephalic presentation. There is demonstrated cardiac activity with a heart rate of 137 bpm. There is a normal amniotic fluid volume. The amniotic fluid index (MICHAEL) is 13.5 cm. The placenta is anterior in location and is not low lying. BIOPHYSICAL PROFILE: Breathing Movements (FBM): 2 Gross Body Movements (GBM): 2 Tone (FT): 2 Amniotic Fluid Volume (AFV): 2 TOTAL SCORE: US/Biophysical Prof W/O Non Stres IMPRESSION: Normal biophysical profile of 10/05. Electronically Signed: Luigi Galan, at 17:33 EDT Tel , Service support ,
== END | disposition home or self-care (01) ==
LOC: OPUS 13:09
PROVIDERS: Referring Provider Obstetrics & Gynecology; Visit Provider Obstetrics & Gynecology
DX: Z36.89 Encounter for other specified antenatal screening (principal)
CPT/HCPCS: 76819

== ENCOUNTER 2019-10-22 13:45 | Outpatient (CLI) | payer MEDICAID, SELFPAY ==
--- NOTE | 2019-10-22 12:29 | US_ITS ---
STUDY: OBSTETRICAL ULTRASOUND - BIOPHYSICAL PROFILE REASON FOR EXAM: Female, 24 years old well being LMP: 02/11/2019 PRIOR ULTRASOUND: Comparison is made with prior study dated 10/18/2019. TECHNIQUE: Transabdominal TECHNICAL QUALITY: Adequate. FINDINGS: There is a single intrauterine fetus. The fetus is in a cephalic presentation. There is demonstrated cardiac activity with a heart rate of 1:30 bpm. There is a normal amniotic fluid volume. The largest amniotic fluid pocket measures 3.0 cm. The amniotic fluid index (MICHAEL) is 9.13 cm. The placenta is anterior in location and is not low lying. There are Grade 2 placental changes. Age by LMP: 36 weeks, 1 days. YI by LMP: 11/18/2019. BIOPHYSICAL PROFILE: Breathing Movements (FBM): 2 Gross Body Movements (GBM): 0 Tone (FT): 2 Amniotic Fluid Volume (AFV): 2 TOTAL SCORE: 6 / 8 US/Biophysical Prof W/O Non Stres IMPRESSION: biophysical profile of 6/8. The referring physician was notified. Electronically Signed: Perfecto High, at 13:35 EDT , Service support ,
[2019-10-22 14:03] VITALS: BMI 20.2
[2019-10-22 14:19] VITALS: BP 104/70; PULSE 104; TEMP 37.1
--- NOTE | 2019-10-22 17:00 | US_ITS ---
STUDY: OBSTETRICAL ULTRASOUND - BIOPHYSICAL PROFILE REASON FOR EXAM: Female, 24 years old well being. A biophysical profile, performed earlier the same day measured 08/05. LMP: 02/11/2019. PRIOR ULTRASOUND: 10/22/2019, 10/18/2019, 10/15/2019, 10/11/2019, 10/09/2019, 10/05/2019, 09/25/2019, 09/24/2019 TECHNIQUE: Transabdominal TECHNICAL QUALITY: Adequate. FINDINGS: There is a single intrauterine fetus. The fetus is in a cephalic presentation. There is demonstrated cardiac activity with a heart rate of 134 bpm. There is a normal amniotic fluid volume. The largest amniotic fluid pocket measures 3.53 cm. The amniotic fluid index (MICHAEL) is 11.26 cm. The placenta is anterior in location and is not low lying. There are Grade 2 placental changes. Age by LMP: 36 weeks, 1 days. YI by LMP: 11/18/2019. BIOPHYSICAL PROFILE: Breathing Movements (FBM): 8 Gross Body Movements (GBM): 8 Tone (FT): 8 Amniotic Fluid Volume (AFV): 8 TOTAL SCORE: / 8 US/Biophysical Profile IMPRESSION: Normal biophysical profile of 10/05. Electronically Signed: Jori Roberts DO at 18:03 EDT Tel [phone], Service support ,
--- NOTE | 2019-10-23 05:00 | OB.TRI.PN ---
Progress Notes Date of Service: 10/22/19 Progress Note: Patient presents for triage evaluation secondary to 6 have a BPP. Here for prolonged monitoring and repeat BPP in 4 hours FHT: 130 Moderate variability reactive no decelerations category I tracing Cascade: no Contractions Assessment and plan: Reassuring status 10-10 BPP reactive NST, reassuring maternal and status patient discharged to home to follow-up later this week for repeat BPP. Kick count precautions reviewed. See problem list details for additional plan information. - Problem List (1) Abnormal test Status: Acute Comment: 6 out of 8 BPP to offer gross movement on 10/21, prolonged monitoring and repeat BPP in 4 hours 10 out of 10 and reassuring
== END 2019-10-22 17:40 | disposition home or self-care (01) ==
LOC: WPOUT 13:57 → OPUS 14:01 → WPOUT 14:01 → WP 14:02
PROVIDERS: Referring Provider Obstetrics & Gynecology; Visit Provider Obstetrics & Gynecology
DX: Z36.9 Encounter for antenatal screening, unspecified (principal)
CPT/HCPCS: 59025; 59050; 76818; 76819; 99218; G0378

== ENCOUNTER → 2019-10-25 | Outpatient (CLI) | payer MEDICAID, SELFPAY ==
[2019-10-25 13:34] VITALS: BMI 20.2
== END | disposition home or self-care (01) ==
LOC: MTDU 17:39
PROVIDERS: Referring Provider Obstetrics & Gynecology; Visit Provider Obstetrics & Gynecology
DX: Z11.59 Encounter for screening for other viral diseases (principal)
CPT/HCPCS: 87635; 94799; U0003

== ENCOUNTER → 2019-10-25 | Outpatient (CLI) | payer MEDICAID, SELFPAY ==
[2019-10-22 14:03] VITALS: BMI 20.2
--- NOTE | 2019-10-25 12:40 | US_ITS ---
STUDY: OBSTETRICAL ULTRASOUND - BIOPHYSICAL PROFILE REASON FOR EXAM: Female, 24 years old well being LMP: 02/10/2019. PRIOR ULTRASOUND: Comparison is made with prior study dated 10/22/2019. TECHNIQUE: Transabdominal TECHNICAL QUALITY: Adequate. FINDINGS: There is a single intrauterine fetus. The fetus is in a cephalic presentation. There is demonstrated cardiac activity with a heart rate of 147 bpm. There is a normal amniotic fluid volume. The largest amniotic fluid pocket measures 5.24 cm. The amniotic fluid index (MICHAEL) is 10.16 cm. The placenta is anterior in location and is not low lying. There are Grade 2 placental changes. Age by LMP: 36 weeks, 4 days. YI by LMP: 11/18/2019. BIOPHYSICAL PROFILE: Breathing Movements (FBM): 2 Gross Body Movements (GBM): 2 Tone (FT): 2 Amniotic Fluid Volume (AFV): 2 TOTAL SCORE: 8 / 8 US/Biophysical Prof W/O Non Stres IMPRESSION: Normal biophysical profile of 10/05. Electronically Signed: Perfecto Hihg, at 14:23 EDT , Service support ,
== END | disposition home or self-care (01) ==
PROVIDERS: Referring Provider Obstetrics & Gynecology; Visit Provider Obstetrics & Gynecology
DX: Z34.90 Encounter for supervision of normal pregnancy, unspecified, unspecified trimester (principal); Z11.59 Encounter for screening for other viral diseases
CPT/HCPCS: 76819; 87081; 87635; 94799; U0003

== ENCOUNTER 2019-10-29 07:10 | Inpatient (IN) | payer MEDICAID, SELFPAY ==
[2019-09-14 14:18] VITALS: BMI 19.9
[2019-10-25 13:34] VITALS: BMI 20.2
[2019-10-29] VITALS (27 sets, daily range): BP systolic 103–137; BP diastolic 59–88; PULSE 62–144; RESP 16; TEMP 36.3–37.4; O2SAT 92–100; BMI 19.9
[2019-10-29] MEDS: Lactated Ringers 1,000 ML 50 ML IV (07:35)
[2019-10-29] MEDS: Oxytocin 30 units/NS 500 ml 30 UNITS/500 ML IV.SOLN IV (08:00)
[2019-10-29 08:04] LABS: Absolute Lymphocyte Count 1.08 X10^3/uL (0.83-4.51); Absolute Neutrophil Count 2.5 X10^3/uL (2.0-7.7); Basophil# 0.02 X10^3/uL; Basophil% 0.5 % (0-1); Eosinophil# 0.08 X10^3/uL; Hematocrit 32.9 % (37-47); Lymphocyte # 1.08 X10^3/ul (4.0); Lymphocyte % 27.3 % (19-41); Mean Corp Hgb Conc 33.4 g/dL (32-36); Mean Corpuscular Hgb 29.7 pg (27.0-32.0); Mean Corpuscular Volume 88.9 fL (81-99); Mean Platelet Vol. 11.3 fl (6.2-12.0); Monocyte# 0.24 X10^3/uL; Monocyte% 6.1 % (0-10); NRBC Flagged by Analyzer 0 % (0-5); Neutrophil # 2.53 X10^3/uL (2.7-7.7); Neutrophil % 63.8 % (47-70); Platelet Count 275 K/mm3 (150-450); RBC Distribution Width CV 12.3 % (11.6-14.6); RBC Distribution Width SD 39.5 fl (35.1-43.9)
--- NOTE | 2019-10-29 08:14 | PCM.HPOB.BLA ---
- Problem List (1) Encounter for induction of labor Status: Acute (2) Abnormal test Status: Acute Comment: 6 out of 8 BPP to offer gross movement on 10/21, prolonged monitoring and repeat BPP in 4 hours 10 out of 10 and reassuring (3) Cholestasis during in third trimester Status: Acute Comment: RUQ US ordered, actigall, daily kick counts, twice weekly BPPs, growth US q 4 weeks, Deliver @37 wks, recommend GI consult PP (4) Double nuchal cord Status: Acute Comment: incidental finding on ultrasound, plan twice daily kick counts, counseled regarding increased risk of CS (5) History of cholestasis during Status: Acute Comment: initially elevated in 1 TM but repeat bile acids and baseline CMP nl. check every trimester. 09/23 nl (6) Status: Acute Qualifiers: Comment: declined carrier and genetic screening, nl AFP screen. anatomy US (7) Supervision of normal Status: Acute Qualifiers: Comment: PRR YI 11/18/19 girl Linn HALL Farooq Jackie History and Physical Date of Admission: 10/29/19 Intake Vital Signs 10/25/19 Height 5 ft 4 in 10/25/19 BP 128/76 H 10/25/19 BMI 20.2 Intake Visit Reasons: 37WK OB Allergies No Known Allergies Allergy (Verified 10/25/19 13:34) Medications vitamin#30 30 mg iron-10 mg iron-folic acid 1 mg-omg3 capsule 1 cap PO DAILY cap 12/30/17 [History Confirmed 10/25/19] Valacyclovir HCl [Valacyclovir] 2,000 mg PO Q12H PRN 05/30/18 [History Confirmed 10/25/19] ursodiol 300 mg capsule 300 mg PO BID #60 cap 09/24/19 [Rx Confirmed 10/25/19] Last Menstral Period: 09/14/17 [facility] Medical History H/O cold sores (Acute) Raynaud disease (Acute) Social History (Updated 10/25/19 @ 14:[address] Felicia Heath MD) Smoking Status: Never smoker alcohol intake: never substance use type: does not use caffeine: Yes what type of physical activity do you participate in: walking seatbelt use: always do you feel safe at home: Yes additional social history: Jackie- Student and works at [employer] Patient works at [employer] [place] Pregancy History 2 Elective abortions Hx Para 1 Spontaneous abortions Hx # Term Pregnancies Ectopic pregnancies Hx # Pregnancies Multiple births # of living children 1 Past Pregnancies Del. Date Name GA/Weeks Outcome Route Bth Weight Infant Gen Labor Lgth Anesthesia Del Locatn Provider FOB 05/31/18 Farooq 37 live - full term 5lbs 6oz Male 12 hours none WC PRASANTH Jackie Delivery Date: 05/31/18 On 07/14/18 @ 13:46 ConstanceFide aldrich Cholestasis HPI 37WK OB : Details: DENNISE FALK is a 24 year old who presents for routine OB visit. plan IOL tuesday at 37 weeks OB Visit YI Calculator Estimated Delivery Date Method Current WG Current Estimate 11/18/19 LMP (Certain) 36w 4d Expected Delivery Route/Plan Labor Preferences- CB/BF classes: na labor support person: jackie labor intervention preferences: open to whatever needed pain management options preferred: minimal intervention cut cord/dad catch: yes : yes PP control planned: NFP discussed possible routes of delivery and associated risks: [] special requests: [] Specific Issue/Plans flu vaccine: declines tdap vaccine: declined rhogam: na LARC form signed: declined movement and labor precautions reviewed. Problem list reviewed and updated with the most current plan of care details and appropriate orders placed. Relevant counseling for the gestational age provided. Continue routine care and follow up unless otherwise noted in visit notes/problem list details Initial Weight: 107 lb Date EGA Weight BP Urine Prot Glucose FHR FuHt Pres Dilation Effaced St Visit Note 05/18/19 13w 5d 107 lb (+0 oz) 90/70 Negative Negative 150 SM- no vb cramping will get sfasting bile acids next week 06/20/19 18w 3d 108 lb (+16 oz) 110/70 Negative Negative 152 MH-no Vb, LOF. MAy have felt slight flutters. Feels well. MFM US 07/02/19 07/20/19 22w 5d 113 lb (+6 lb) 98/56 150 SM- no vb lof good fm no regular ctx 08/17/19 26w 5d 116 lb (+9 lb) 90/60 150 27 SM- no vb lof good fm no regular ctx needs 3 hr gtt 09/14/19 30w 5d 118 lb (+11 lb) 108/70 Negative Negative 145 30 SM- no vb lof good fm no regular ctx 09/25/19 32w 2d 116 lb 6 oz (+9 lb 6 oz) 90/60 Negative Negative 09/28/19 32w 5d 116 lb 6 oz (+9 lb 6 oz) 104/58 Negative Negative 140 32 SM- no vb lof good fm no regular ctx. itching present, no VÁZQUEZ BV, repeat labs show increasing liver enzymes but infectious testing 10/11/19 34w 4d 117 lb (+10 lb) 96/62 140 34 GP - Denies LOF/VB/Ctx/DFM. Itching much better with actigall. 10/25/19 36w 4d 128/76 Negative Negative 140 37 SM- no vb lof good fm no regular ctx plan IOL thursday 10/05 bpp today ACOG First Trimester First Trimester: Desire for , Alcohol, Tobacco Cessation, Illicit/Recreational Drug/Substance Use, Intimate Partner Violence, Barriers to care, Unstable Housing, Communication Barriers, Environmental/Work Hazards, Anticipated Course of Care, Toxoplasmosis Precations, Use of Any medications, Sexual activity, Exercise, Dental Care, Sauna/Hot tub use, Seat Belt use, Childbirth classes/Hospital facilities, , Travel, Indications for US and Screening for Aneuploidy Second Trimester Second Trimester: Signs and Symptoms of Labor, Selecting a care provider, Reproductive Life Planning, Care Planning, Tobacco Cessation, Depression/Anxiety and Intimate Partner Violence Third Trimester Third Trimester: Pain Management Plans, Labor support person(s), Immediate Larc, Movement Monitoring and Feeding Yes ; discussed Trial of Labor after Counseling or discussed Circumcision preference Diagnostics Diagnostics Diagnostics Hgb 11.6 g/dL (12.0-15.0) L 09/27/19 Hct 34.9 % (37-47) L 09/27/19 Details: HIV: Urine Culture: Sequential Screen: NIPT Screen: ROS Const Reports system reviewed and no additional complaints, except as docu Card Reports system reviewed and no additional complaints, except as docu Resp Reports system reviewed and no additional complaints, except as docu GI Reports system reviewed and no additional complaints, except as docu, Reports nausea Reports system reviewed and no additional complaints, except as docu Musc Reports system reviewed and no additional complaints, except as docu Exam Const General: cooperative, healthy appearing, comfortable, anxious HENMT Head: normal to inspection Nose: external nose normal Face and sinus: normal facial exam Neck Neck: normal visual inspection, full ROM, no lymphadenopathy Thyroid: thyroid normal Chest Chest palpation & inspection: normal inspection of the chest Resp Effort & Inspection: normal respiratory effort GI Inspection: normal to inspection Palpation: soft, other (gravid uterus) Other: vertex and appropriate size for gestational age Other: Cervical Exam: Extrem General: pedal edema Results POC Urinalysis Dip (Clinic) Office Urine Color Yellow Last Edit by Leilani Yanez on 10/25/19 13:36 Office Urine Clarity Clear Last Edit by Leilani Yanez on 10/25/19 13:36 Office Urine Glucose Negative Last Edit by Leilani Yanez on 10/25/19 13:36 Office Urine Ketones Negative Last Edit by Leilani Yanez on 10/25/19 13:36 Off Ur Spec [place] 1.010 Last Edit by Leilani Yanez on 10/25/19 13:36 Office Urine pH 6.0 Last Edit by Leilani Yanez on 10/25/19 13:36 Office Urine Bilirubin Negative Last Edit by Leilani Yanez on 10/25/19 13:36 Office Urine Urobilinogen Negative Last Edit by Leialni Yanez on 10/25/19 13:36 Office Urine Blood Negative Last Edit by Leilani Yanez on 10/25/19 13:36 Office Urine Blood Hemolyzed Negative Last Edit by Leilani Yanez on 10/25/19 13:36 Office Urine Protein Negative Last Edit by Leilani Yanez on 10/25/19 13:36 Office Urine Nitrate Negative Last Edit by Leilani Yanez on 10/25/19 13:36 Off Ur Leukocytes Negatve Last Edit by Leilani Yanez on 10/25/19 13:36 Assessment & Plan Problems 1. Abnormal test O28.9 6 out of 8 BPP to offer gross movement on 10/21, prolonged monitoring and repeat BPP in 4 hours 10 out of 10 and reassuring 2. Cholestasis during in third trimester O26.613; K83.1 RUQ US ordered, actigall, daily kick counts, twice weekly BPPs, growth US q 4 weeks, Deliver @37 wks, recommend GI consult PP 3. 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 History of cholestasis during Z87.59; Z87.19 initially elevated in 1 TM but repeat bile acids and baseline CMP nl. check every trimester. 09/23 nl 5. Z34.90 declined carrier and genetic screening, nl AFP screen. anatomy US 6. Supervision of normal Z34. PRR YI 11/18/19 girl Aniyacaesar RAFAEL Farooq Jackie Fleming Patient presents IOL, plan management for with pitocin/AROM. Pain management: plans epidural. GBS negative Management of any complications: none I have reviewed the [facility] and made any clinically relevant updates. 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 Arabella Vickers M.D.
[2019-10-29 08:16] LABS: Partial Thromboplast Time 27.7 Seconds (24.1-36.2); Prothrombin Time (Protime)PT. 12.7 SECONDS (11.7-14.9)
[2019-10-29 08:20] LABS: ALB/GLOB Ratio 0.6 RATIO (0.9-2.4); AST(SGOT) 46 U/L (15-37); Alanine Aminotransfer ALT/SGPT 52 U/L (13-56); Albumin, Serum 2.7 g/dL (3.2-5.0); Alkaline Phosphatase 207 U/L (45-117); Anion Gap 8 (5-15); BUN 8 mg/dL (7-18); BUN/Creat Ratio 11.7 RATIO (10-20); Calcium,Total 8.6 mg/dL (8.5-10.1); Chloride 108 mmol/L (98-107); Creatinine, Serum 0.69 mg/dL (0.55-1.02); EST Glomerular Filtration Rate 112 mL/min (>60); Est Glom Filt Rate - Afr Amer 135 mL/min (>60); Estimated Creatinine Clearance 104.43 ml/min; Globulin 4.4 g/dL (2.2-4.2); Glucose 110 mg/dL (74-106); Potassium 3.3 mmol/L (3.5-5.1); Protein, Total 7.1 g/dL (6.4-8.2); Sodium Level 137 mmol/L (136-145)
[2019-10-29] MEDS: Oxytocin 30 units/NS 500 ml 30 UNITS/500 ML IV.SOLN 334 UNITS IV (15:30)
[2019-10-29] MEDS: Acetaminophen 500 MG Tablet 1000 MG PO (17:23)
--- NOTE | 2019-10-29 19:15 | OP.PCM_ITS ---
Problem List (1) Encounter for induction of labor Status: Acute (2) Abnormal test Status: Acute Comment: 6 out of 8 BPP to offer gross movement on 10/21, prolonged monitoring and repeat BPP in 4 hours 10 out of 10 and reassuring (3) Cholestasis during in third trimester Status: Acute Comment: RUQ US ordered, actigall, daily kick counts, twice weekly BPPs, growth US q 4 weeks, Deliver @37 wks, recommend GI consult PP (4) Double nuchal cord Status: Acute Comment: incidental finding on ultrasound, plan twice daily kick counts, counseled regarding increased risk of CS (5) History of cholestasis during Status: Acute Comment: initially elevated in 1 TM but repeat bile acids and baseline CMP nl. check every trimester. 09/23 nl (6) Status: Acute Qualifiers: Comment: declined carrier and genetic screening, nl AFP screen. anatomy US (7) Supervision of normal Status: Acute Qualifiers: Comment: PRR YI 11/18/19 girl Aniyacaesar RAFAEL Farooq Yosi Vaginal Delivery Maternal Presentation: Medically Indicated Induction Patient is a 24-year-old at 37 weeks gestation who was admitted for induction of labor for cholestasis. On admission she was found to be 3 cm. She was induced with Pitocin followed by artificial rupture of membranes. She made rapid cervical change to complete dilation. Method of Induction: Pitocin Medical Reason for Induction: Maternal Medical Condition: list: - Cholestasis of Amniotic Membrane Rupture Type: Artificial Rupture of Membrane time: 12:30 PM Amniotic Fluid Description: Clear Final YI: 11/18/19 Final YI Source: LMP Gestational age: 37 Weeks and 1 Days Date of Procedure: 10/29/19 Pre-Operative Diagnosis: Cholestasis of Post-Operative Diagnosis: Live female in RACIEL position, nuchal cord present x2 Surgery/ Procedure Performed: Spontaneous Vaginal Delivery Type of Anesthesia: Local with 1% lidocaine Description of Procedure: Patient began pushing and delivered the head in the RACIEL presentation. The head was delivered atraumatically and a loose nuchal cord ?2 was identified and easily reduced over the 's head. The anterior and posterior shoulders delivered without complication followed by the rest of the infant and the was placed on the maternal abdomen. Delayed cord clamping was employed for approximately 60 seconds. Cord was clamped and cut and gentle traction was applied to the cord and the placenta delivered spontaneously immediately following it was noted to be intact with three-vessel cord. The perineum and vagina were inspected and an degree midline perineal laceration was noted. This was instilled with 15 cc of 1% lidocaine and repaired in the standard fashion using 3-0 Vicryl Rapide suture. EBL was 150 cc. Patient and tolerated delivery well. Presentation: RACIEL Placental Delivery Description: Spontaneous Placenta Disposition: [facility] Cord Vessel Description: 3 Vessels Nuchal Cord Compression: Without compression Cord Entanglement: Around neck x 2, loose Estimated Blood Loss: 150 cc A gender: Female (1 minute): 9 (5 minute): 9 Laceration: Midline, Perineal Extension/lac, 2nd degree Medications given after delivery: IV Pitocin Complications: None Multi Select Codes - Urinary/Genital Urinary/Genital CPT Codes: 20706 Vaginal Delivery+ PP Care([facility])
[2019-10-29] MEDS: Naproxen 250 MG Tablet 500 MG PO (22:50)
[2019-10-30] VITALS (10 sets, daily range): BP systolic 95–121; BP diastolic 57–76; PULSE 71–94; RESP 16; TEMP 36.3–37.3
--- NOTE | 2019-10-30 07:59 | PCM.PN.OB ---
Patient Problems: Active and Suspected Problems (Last Reviewed 10/25/19 @ 13:34 by Leilani Yanez) Encounter for induction of labor (Acute) Subjective: Patient doing well without complaints. Tolerating PO. Ambulating and voiding without difficulty. without difficulty. Denies chest pain, shortness of breath, calf pain/swelling, fevers, chills, lightheadedness. - Physical Exam Vitals/I&O's: Vital Signs Temp Pulse Resp BP Pulse Ox 98.4 F 90 16 112/57 L 98 10/30/19 04:55 10/30/19 07:36 10/30/19 04:55 10/30/19 07:36 10/29/19 15:09 Oxygen Delivery Method Room Air Weight: 116 lb Body Mass Index (BMI) 19.9 Intake and Output for Last 24 Hours 10/28/19 10/29/19 10/30/19 23:59 23:59 23:59 Intake Total 2247.56 / 2247.56 Output Total 1200 / 1200 Balance 1047.56 / 1047.56 General: Alert, Oriented x3 Abdomen: Soft, Non Tender, Non-Distended, - - FF below U Laboratory Results 10/29/19 07:45: WBC 4.0 L, RBC 3.70 L, Hgb 11.0 L, Hct 32.9 L, MCV 88.9, MCH 29.7, MCHC 33.4, RDW Std Deviation 39.5, RDW Coeff of Rosaura 12.3, Plt Count 275, MPV 11.3, Immature Gran % (Auto) 0.300, Neut % (Auto) 63.8, Lymph % (Auto) 27.3, Cedar % (Auto) 6.1, Eos % (Auto) 2.0, Baso % (Auto) 0.5, Absolute Neuts (auto) 2.5, Absolute Lymphs (auto) 1.08, Nucleated RBC % 0 10/29/19 07:45: Blood Type A POSITIVE, Antibody Screen NEGATIVE 10/29/19 07:45: PT 12.7, INR 1.0, APTT 27.7 10/29/19 07:45: Sodium 137, Potassium 3.3 L, Chloride 108 H, Carbon Dioxide 21.0, Anion Gap 8, BUN 8, Creatinine 0.69, Estim Creat Clear Calc 104.43, Est GFR (MDRD) Af Amer 135, Est GFR (MDRD) Non-Af 112, BUN/Creatinine Ratio 11.7, Glucose 110 H, Calcium 8.6, Total Bilirubin 0.40, AST 46 H, ALT 52, Alkaline Phosphatase 207 H, Total Protein 7.1, Albumin 2.7 L, Globulin 4.4 H, Albumin/Globulin Ratio 0.6 L Current Medications Acetaminophen (Tylenol) 1,000 mg PO Q8H PRN PRN PRN Reason: Pain Score 1-3/10 Last Admin: 10/29/19 17:23 Dose: 1,000 mg Documented by: Bisacodyl (Dulcolax) 10 mg RECTAL UD PRN PRN Reason: If no BM Dibucaine (Dibucaine) 1 applic TOPICAL TID PRN PRN; Protocol PRN Reason: Discomfort Hydrocortisone (Hytone) 1 applic TOPICAL TID PRN PRN; Protocol PRN Reason: Discomfort Methylergonovine Maleate (Methergine) 0.2 mg IM X1 PRN PRN Reason: Excess bleeding/uterine atony Naproxen (Naprosyn) 500 mg PO Q8H PRN PRN PRN Reason: Pain Score 1-3/10 Last Admin: 10/29/19 22:50 Dose: 500 mg Documented by: Ondansetron HCl (Zofran) 4 mg IV Q4H PRN PRN PRN Reason: Nausea Oxycodone HCl (Oxyir) 5 - 10 mg PO Q4H PRN PRN PRN Reason: Pain Score 4-10/10 Senna/Docusate Sodium (Senokot-S, Tamiko-Colace) 1 - 2 tablet PO DAILY PRN PRN PRN Reason: Constipation Simethicone (Mylicon) 80 mg PO PCHS PRN PRN Reason: Indigestion/Stomach pain Sodium Chloride () 5 - 15 ml IV UD PRN PRN Reason: SALINE FLUSH Medical Necessity - Tobacco Use Smoking Status: Never smoker Assessment/Plan All Active Problems (Last Reviewed 10/25/19 @ 13:34 by Leilani Yanez) Encounter for induction of labor (Acute) Abnormal test (Acute) Cholestasis during in third trimester (Acute) Double nuchal cord (Acute) History of cholestasis during (Acute) (Acute) Supervision of normal (Acute) Abnormal ultrasound (Resolved) Abnormal glucose affecting (Resolved) Cholestasis (Resolved) Elevated liver enzymes (Resolved) Normal glucose level (Resolved) Placental abnormality in third trimester (Resolved) (Resolved) Supervision of high risk in third trimester (Resolved) Supervision of normal first (Resolved) s/p PPD # 1 1. routine post delivery care 2. breast feeding- support given 3. rh positive 4. rubella immune 5. home today
--- NOTE | 2019-10-30 08:01 | DCINST_ITS ---
Additional Instructions: If you experience any of the following, contact your healthcare provider. * Bleeding that soaks a pad every hour for 2 hours * Fever 100.4 or higher * Unrelieved incision or abdominal pain * Swelling, redness, discharge or bleeding from your incision or episiotomy site * Your incision begins to separate * Problems urinating (including inability to urinate or burning while urinating). * Visual changes * Severe headache * Flu-like symptoms * Pain or redness in one of both of your breasts * Pain, warmth, tenderness or swelling in your legs, especially the calf area * Frequent nausea and vomiting * Symptoms of depression or anxiety If you experience any of the following, call 911 or go to the nearest Emergency Room. * Chest pain * Problems breathing * Seizure activity * Partial or complete paralysis of a body part, slurred speech, weakness or drooping of the face, or a sudden inability to walk or hold your balance Allergies/Adverse Reactions: Allergies No Known Allergies Allergy (Verified 10/25/19 13:34) Medications to take at Discharge vitamin#30 30 mg iron-10 mg iron-folic acid 1 mg-omg3 capsule 1 cap PO DAILY cap 12/30/17 Naproxen [Naprosyn] 250 - 500 mg PO Q8H PRN PRN #30 tab 10/29/19 Ursodiol 300 mg PO BID 10/29/19 The following prescriptions were given: Naproxen [Naprosyn] 250 - 500 mg PO Q8H PRN PRN #30 tab PRN Reason: MILD PAIN Transmission Status: Received by [facility] Primary Care Physician: Care Physician,No Primary [Primary Care Provider] - Test Results: Test results from this visit will be discussed in further detail at your follow- up appointment, if applicable.
--- NOTE | 2019-10-30 08:01 | PCM.DCVAG ---
Additional Instructions: If you experience any of the following, contact your healthcare provider. Bleeding that soaks a pad every hour for 2 hours Fever 100.4 or higher Unrelieved incision or abdominal pain Swelling, redness, discharge or bleeding from your incision or episiotomy site Your incision begins to separate Problems urinating (including inability to urinate or burning while urinating). Visual changes Severe headache Flu-like symptoms Pain or redness in one of both of your breasts Pain, warmth, tenderness or swelling in your legs, especially the calf area Frequent nausea and vomiting Symptoms of depression or anxiety If you experience any of the following, call 911 or go to the nearest Emergency Room. Chest pain Problems breathing Seizure activity Partial or complete paralysis of a body part, slurred speech, weakness or drooping of the face, or a sudden inability to walk or hold your balance Allergies/Adverse Reactions: Allergies No Known Allergies Allergy (Verified 10/25/19 13:34) Medications to take at Discharge vitamin#30 30 mg iron-10 mg iron-folic acid 1 mg-omg3 capsule 1 cap PO DAILY cap 12/30/17 Naproxen [Naprosyn] 250 - 500 mg PO Q8H PRN PRN #30 tab 10/29/19 Ursodiol 300 mg PO BID 10/29/19 The following prescriptions were given: Naproxen [Naprosyn] 250 - 500 mg PO Q8H PRN PRN #30 tab PRN Reason: MILD PAIN Transmission Status: Received by [facility] Primary Care Physician: Care Physician,No Primary [Primary Care Provider] - Test Results: Test results from this visit will be discussed in further detail at your follow-up appointment, if applicable.
[2019-10-30] MEDS: Acetaminophen 500 MG Tablet 1000 MG PO (15:53)
== END 2019-10-30 17:40 | disposition home or self-care (01) | DRG 560 ==
PROVIDERS: Admitting Provider Obstetrics & Gynecology; Referring Provider Obstetrics & Gynecology; Visit Provider Obstetrics & Gynecology
DX: O26.62 Liver and biliary tract disorders in childbirth (principal); K83.1 Obstruction of bile duct; O69.81X0 Labor and delivery complicated by cord around neck, without compression, not applicable or unspecified; O70.1 Second degree perineal laceration during delivery; Z3A.37 37 weeks gestation of pregnancy; Z37.0 Single live birth
CPT/HCPCS: 59025; 59050; 80053; 85025; 85610; 85730; 86850; 86900; 86901; 99218; J7120; G0378

== ENCOUNTER → 2020-12-15 | Outpatient (CLI) | payer MEDICAID, SELFPAY ==
[2020-12-19 13:36] LABS: HPV Reflexed? NOT INDICATED
== END | disposition home or self-care (01) ==
LOC: LABSPEC 16:41
PROVIDERS: Referring Provider Obstetrics & Gynecology; Visit Provider Obstetrics & Gynecology
DX: Z12.4 Encounter for screening for malignant neoplasm of cervix (principal)
CPT/HCPCS: 88175; G0145

== ENCOUNTER → 2023-10-06 | Outpatient (CLI) | payer MEDICAID, SELFPAY ==
[2023-10-14 08:28] LABS: HPV Reflexed? NOT INDICATED
== END | disposition home or self-care (01) ==
PROVIDERS: Referring Provider Advanced Practice Midwife; Visit Provider Advanced Practice Midwife
DX: Z12.4 Encounter for screening for malignant neoplasm of cervix (principal)
CPT/HCPCS: 88175; G0145